=== PATIENT | female | born 1930 | race Caucasian/White ===

== ENCOUNTER → 2016-03-08 09:55 | Outpatient (CLI) | payer MEDICARE ==
[2013-12-03 15:07] VITALS: BMI 27.4
[~2016-03-08 09:55] MED LIST: BAYER CHEWABLE81 MG PO; BENADRYL25 MG PO; BENADRYL50 MG PO; BRILINTA90 MG PO; COLACE100 MG PO; CORDARONE200 MG PO; DIOVAN HCT 320/1 TAB PO; DULCOLAX10 MG/SUPP RC; FLORAJEN3 CAPS460 MG PO; GLUCOTROL XL 5 M5 MG PO; INCRUSE ELLI62.5 MCG INH; IPRAT-ALBUT 0.5-3 ML UPD; LIPITOR10 MG PO; MILK OF MAGNESI30 ML PO; MIRALAX17 GM PO; MUCINEX DM ER1 EAC1 PO; NAPROSYN500 MG PO; NUTRISOURCE FI1 EACH PO; OMNICEF300 MG PO; OXAZEPAM30 MG PO; PRILOSEC20 MG PO; QVAR8.7 G1 INH; REQUIP1 MG PO; SENOKOT-S TABLE1 TAB PO; SINGULAIR10 MG PO; SYMBICORT 16010.2 GM INH; TENORMIN50 MG PO; ULTRAM50 MG PO; VENTOLIN HFA18 GM INH; ZPAK PO; ZYRTEC10 MG PO
== END | disposition home or self-care (01) ==
LOC: D.CT 09:55 → D.RT 11:00
DX: J44.9 Chronic obstructive pulmonary disease, unspecified (principal)

== ENCOUNTER 2016-03-18 09:18 | Inpatient (IN) | payer MEDICARE ==
[2016-03-18] VITALS (13 sets, daily range): BP systolic 108–160; BP diastolic 50–67; BMI 32.0
[~2016-03-18] VITALS: Ht 167.6 cm; Wt 89.8 kg
[~2016-03-18 09:18] MED LIST changes: -COLACE100 MG PO; -CORDARONE200 MG PO; -DULCOLAX10 MG/SUPP RC; -FLORAJEN3 CAPS460 MG PO; -IPRAT-ALBUT 0.5-3 ML UPD; -MILK OF MAGNESI30 ML PO; -MUCINEX DM ER1 EAC1 PO; -OMNICEF300 MG PO; -SENOKOT-S TABLE1 TAB PO; -SINGULAIR10 MG PO; -ZPAK PO
[2016-03-18 11:00] LABS: HEMATOCRIT 43.4 % (36.0-48.0); HEMOGLOBIN 14.2 g/dL (12-16); MCH 30.7 pg (26.0-34.0); MCHC 32.7 g/dL (31.0-37.0); MCV 93.7 fL (80.0-100.0); MEAN PLATELET VOLUME 10.8 fL (7.4-10.4); PLATELET COUNT 346 10x3/uL (130-400); RBC 4.63 10x6/uL (4.00-5.40); RDW 14.8 % (11.5-14.5); WBC 24.3 10x3/uL (4.8-10.8)
[2016-03-18 11:15] LABS: ANION GAP 15.3 mmol/L (8-16); CALCIUM 9.6 mg/dL (8.5-10.1); CARBON DIOXIDE 26.1 mmol/L (21.0-32.0); CREATININE - SERUM 1.2 mg/dL (0.6-1.3); POTASSIUM - SERUM 4.4 mmol/L (3.5-5.1)
[2016-03-18] MEDS ORDERED: SINGULAIR10 MG PO (11:15)
[2016-03-18] MEDS ORDERED: MUCINEX DM ER1 EAC1 PO (11:15)
[2016-03-18] MEDS ORDERED: IPRAT-ALBUT 0.5-3 ML UPD (11:40)
--- NOTE | 2016-03-18 12:27 | NUR ---
1225 DR SAENZ NOTIFIED OF WBC COUNT 24.3 AND PT'S CONCERN OF NEW ONSET BACK PAIN AND NO BM SINCE TUESDAY. NO NEW ORDERS RECEIVED.
[2016-03-18 13:14] LABS: EOSINOPHILS 2 % (0-7); LYMPHOCYTES 13 % (15-50); MONOCYTES 7 % (2-11); NEUTROPHILS 73 % (40-80); PLATELET ESTIMATE NORMAL
--- NOTE | 2016-03-18 15:00 | NUR ---
PATIENT BILATERAL KNEES NOTED TO BE RED LEFT KNEE WORSE THAN RIGHT, THIS WAS NOTICED WHEN PLACING STUART, ALSO WHEN PLACING STUART PATIENT HAS VERY SMALL OPENING TO GET TO MEATUS NOTED MINIMAL AMOUNT OF BLEEDING AFTER PUTTING STUART IN, THIS WAS NOTIFIED TO MARTINE MURRIETA.
--- NOTE | 2016-03-18 17:10 | NUR ---
RECIEVED PATIENT VIA BED WITH NURSE FROM RECOVERY ROOM. PATIENT IS AWAKE, ALERT AND ORIENTED X'S 4. RECIEVING 2L/MIN OF OXGYEN VIA NASAL CANNULA. AUDIBLE CRACKLES NOTED. ASSESSED ABDOMEN, ABDOMINAL BINDER IN PLACE. OPEN ABDOMINAL BINDER TO ASSESS ABDOMEN. MIDLINE INCISION WITH BORDERED GAUZE DRESSING INTACT. SMALL AMOUNT OF BLOOD ON DRESSING. BOWEL SOUNDS HYPOACTIVE X'S 4 QUADS PER AUSCULTATION. PUT ABDOMINAL BINDER BACK ON. SCDS TO BILATERAL LEGS.
[2016-03-19] VITALS (7 sets, daily range): BP systolic 109–184; BP diastolic 52–81; Ht 167.6 cm; Wt 89.8 kg
--- NOTE | 2016-03-19 04:30 | NUR ---
PT STILL UNABLE TO VOID AFTER SURGERY. MANY ATTEMPTS WITH NO SUCCESS. BLADDER SCANNED 400. PERFORMED IN/OUT CATH AND RECEIVED 450 CC'S CLEAR YELLOW URINE. NO OTHER NEEDS. WILL CONTINUE TO MONITOR.
[2016-03-19 06:54] LABS: BASOPHILS 0.1 % (0.0-2.0); EOSINOPHILS 0 % (0-7); HEMATOCRIT 39.9 % (36.0-48.0); HEMOGLOBIN 12.7 g/dL (12-16); IMMATURE GRANULOCYTES 0.6 % (0-5); LYMPHOCYTES 5.6 % (15-50); MCH 29.9 pg (26.0-34.0); MCHC 31.8 g/dL (31.0-37.0); MCV 93.9 fL (80.0-100.0); MEAN PLATELET VOLUME 10.4 fL (7.4-10.4); MONOCYTES 8.5 % (2-11); NEUTROPHILS 85.2 % (40-80); PLATELET COUNT 335 10x3/uL (130-400); RBC 4.25 10x6/uL (4.00-5.40); RDW 14.8 % (11.5-14.5); WBC 24.1 10x3/uL (4.8-10.8)
[2016-03-19 07:10] LABS: ANION GAP 16.7 mmol/L (8-16); CALCIUM 8.4 mg/dL (8.5-10.1); CARBON DIOXIDE 21.9 mmol/L (21.0-32.0); CREATININE - SERUM 1.1 mg/dL (0.6-1.3); POTASSIUM - SERUM 4.6 mmol/L (3.5-5.1)
--- NOTE | 2016-03-19 08:19 | NUR ---
PATIENT ALERT/ORIENT. SITTING UP IN BED TO EAT BREAKFAST. CALL LIGHT WITHIN REACH. DAUGHTER IN ROOM WITH PATIENT. OXYGEN ON AT 2L PER N/C
--- NOTE | 2016-03-19 10:00 | NUR ---
PHYSICAL THERAPIST IN ROOM WITH PATIENT. HELPED PATIENT UP TO CHAIR AT BEDSIDE.
--- NOTE | 2016-03-19 13:10 | NUR ---
PATIENT STATES SHE HAS NOT GONE (URINATED) THIS AM. HELPED UP TO THE BEDSIDE COMMODE. MAX ASST OF TWO FROM BED TO COMMODE TRANSFER.
--- NOTE | 2016-03-19 13:30 | NUR ---
PATIENT DID NOT URINATE WHILE ON THE COMMODE. HELPED BACK TO BED. DR TORRES NOTIFIED OF PATIENT NOT BEING ABLE TO URINATE. LUNG SOUND, CRACKES-RALES. NEW ORDERS RECEIVED
--- NOTE | 2016-03-19 13:45 | NUR ---
PATIENT STRAIGHT CATH. HAS A PROLAPES BLADDER. 800CC OF URINE OUTPUT
--- NOTE | 2016-03-19 18:12 | NUR ---
PATIENT HELPED UP TO THE COMMODE BY TWO ASST. UNABLE TO VOID
[2016-03-20 04:20] VITALS: BP 156/54
--- NOTE | 2016-03-20 08:21 | NUR ---
AWAKE AND ALERT. ORIENTED X3. NO C/O AT THIS TIME. LUNGS WITH FAINT CRACKLES AND DIMINISHED THROUGHOUT. OCCASSIONALLY PRODUCTIVE COUGH NOTED. SKIN IS INTACT WITHOUT REDNESS EXCEPT INCISION TO LEFT LOWER ABDOMEN WHICH HAS A DRY INTACT DRESSING IN PLACE. IV TO RIGHT FOREARM IS PATENT WITHOUT REDNESS AT INSERTION SITE. DAUGHTER AT BEDSIDE REPORTS UP TO BSC WITH ASSIST. BREAKFAST SERVED IN ROOM. DAUGHTER IS ASSISTING WITH MEAL.
[2016-03-20 10:06] VITALS: BP 128/80
--- NOTE | 2016-03-20 10:30 | NUR ---
TOOK AM MEDS WITHOUT DIFFICULTY. AMBULATED IN HALLWAY WITH PT USING RW.
--- NOTE | 2016-03-20 11:50 | NUR ---
REQUESTED AND GIVEN 4MG ZOFRAN SLOW IVP FOR C/O NAUSEA. WILL MONITOR.
--- NOTE | 2016-03-20 12:30 | NUR ---
LUNCH SERVED IN ROOM. DAUGHTER ASSISTED WITH MEAL. ATE ONLY A FEW BITES AND BEGAN GAGGING. WILL MONITOR.
[2016-03-20 13:01] VITALS: BP 185/64
--- NOTE | 2016-03-20 15:30 | NUR ---
RESTING QUIETLY WITH EYES CLOSED. NO NEEDS NOTED.
--- NOTE | 2016-03-20 18:25 | NUR ---
ATE A FEW BITES OF SUPPER. NO CHANGES NOTED. DENIES NEEDS. FAMILY AT BEDSIDE.
[2016-03-20 18:48] VITALS: BP 190/68
[2016-03-20 20:28] VITALS: BP 137/67
--- NOTE | 2016-03-20 23:26 | NUR ---
REC'D IN BED WITH EYES CLOSED EASILY AROUSED WHEN NAME IS CALLED. RESP EVEN AND UNLABORED WITH NO DISTRESS NOTED. CAN VOICE NEEDS AND WANTS. NO C/O NOTED OR VOICED.ASSESSEMENT COMPLETED. DAUGHTER AT BEDSIDE. C/L IN REACH
[2016-03-21] VITALS (7 sets, daily range): BP systolic 104–183; BP diastolic 57–90
--- NOTE | 2016-03-21 02:12 | NUR ---
RESTING WITH EYES CLOSED, RESP WITH EASE, ABD BINDER IN PLACE, SR'S UP, CL IN REACH
--- NOTE | 2016-03-21 04:32 | NUR ---
REC'D IN BED AWAKE AND ALERT. RESP EVEN AND UNLABORED WITH NO DISTRESS NOTED. CAN VOICE NEEDS AND WANTS. ASSISTANCE GIVEN WITH TRANSFERS. DAUGHTER AT BEDSIDE. NO C/O NOTED OR VOICED AT THIS TIME. ASSESSMENT COMPLETED. C/L IN REACH AT BEDSIDE.
--- NOTE | 2016-03-21 07:57 | NUR ---
AWAKE AND ALERT. ORIENTED X3. NO C/O AT THIS TIME. LUNGS HAVE CRACKLES AND DIMINISHED THROUGHOUT LUNG RODGERS. NON PRODUCTIVE COUGH NOTED. SKIN IS INTACT WITHOUT REDNESS EXCEPT INCISION TO LEFT LOWER ABDOMEN WHICH IS DRY AND INTACT WITH CLIPS IN PLACE. SCD'S IN PLACE. DENIES NEEDS. HEART RATE IS ELEVATED AND SPORADIC AT THIS TIME. WILL GET EKG A PRECAUTION. FAMILY AT BEDSIDE.
--- NOTE | 2016-03-21 08:30 | NUR ---
EKG SHOWED AFIB. DR. SAENZ NOTIFIED OF SAME. NEW ORDERS TO CONSULT DR. JEONG'S GROUP. SPOKE WITH DR. ROLDAN.
[2016-03-21 10:11] LABS: CALC OSMOLALITY 270 mosm/kg (275-300); CALCIUM 9.8 mg/dL (8.5-10.1); CARBON DIOXIDE 26.4 mmol/L (21.0-32.0); CHLORIDE - SERUM 95 mmol/L (98-107); CKMB 2.6 U/L (0.0-3.6); CREATINE KINASE 140 UL (21-215); CREATININE - SERUM 0.9 mg/dL (0.6-1.3); GLUCOSE 192 mg/dL (74-106); MAGNESIUM - SERUM 1.7 mg/dL (1.8-2.4); PHOSPHOROUS 2.6 mg/dL (2.5-4.9); POTASSIUM - SERUM 3.6 mmol/L (3.5-5.1); SODIUM 132 mmol/L (136-145); TROPONIN-I < 0.017 ng/mL (0.000-0.060); UREA NITROGEN 14 mg/dL (7-18); eGFR NON AFRICAN AMERICAN 63 mL/min (90-120)
[2016-03-21 10:18] LABS: BASOPHILS 0.1 % (0.0-2.0); EOSINOPHILS 0.3 % (0-7); HEMATOCRIT 39.5 % (36.0-48.0); HEMOGLOBIN 12.9 g/dL (12-16); IMMATURE GRANULOCYTES 0.5 % (0-5); LYMPHOCYTES 7.4 % (15-50); MCH 30.4 pg (26.0-34.0); MCHC 32.7 g/dL (31.0-37.0); MCV 92.9 fL (80.0-100.0); MEAN PLATELET VOLUME 10.6 fL (7.4-10.4); NEUTROPHILS 80.7 % (40-80); PLATELET COUNT 378 10x3/uL (130-400); RBC 4.25 10x6/uL (4.00-5.40); RDW 14.5 % (11.5-14.5)
--- NOTE | 2016-03-21 10:30 | NUR ---
UP TO BSC. VOIDED WITHOUT DIFFICULTY. NO BM OF NOW. WILL MONITOR. TELEMETRY IN PLACE SHOWS AFIB. WILL CONTINUE TO MONITOR.
--- NOTE | 2016-03-21 12:29 | NUR ---
C/O FEELING NAUSEATED. REQUESTED AND GIVEN 4MG ZOFRAN SLOW IVP FOR SAME. WILL MONITOR.
--- NOTE | 2016-03-21 12:30 | NUR ---
REFUSED TO EAT BUT A FEW BITES OF LUNCH. FAMILY AT BEDSIDE. REFUSED PT THIS AM.
--- NOTE | 2016-03-21 13:00 | NUR ---
DR. AYALA HERE. NEW ORDERS RECEIVED.
--- NOTE | 2016-03-21 19:23 | NUR ---
REFUSED TO EAT ANY SUPPER. NO CHANGES NOTED. DENIES NEEDS.
--- NOTE | 2016-03-22 04:00 | NUR ---
PT IN BED WITH NO NEEDS. IV TO RIGHT FOREARM PATENT AND SALINE LOC. TELEMETRY ON. SCD'S ON. MIDLINE INCISION NOTED EARLIER IN SHIFT TO BE OOZING ABOVE 4TH STAPLE. ABDOMINAL BINDER ON. HYPOACTIVE BOWEL SOUNDS NOTED. SIDE RAILS ARE UP X 2. BED IS LOW. CALL LIGHT IS IN REACH.
--- NOTE | 2016-03-22 04:31 | NUR ---
CONTINUE TO REST WELL AT THIS TIME WITH NO C/O NOTED OR VOICED. C/L IN REACH AT BEDSIDE.
[2016-03-22 05:54] VITALS: BP 179/73
--- NOTE | 2016-03-22 08:30 | NUR ---
PATIENT SITTING UP IN HER BED, SEMI HI FOWLERS. SHE IS WITHOUT EVIDENCE OF DISTRESS. DAUGHTER AT THE BEDISDE. STAT ESHTAT SHE HAS A FEELING LIKE HER FOOD "HITS A BRICK WALL" ABOUT HER CHEST AND SHE CANNOT EAT ANY MORE. ENCOURAGED LIQUIDS AND ASKED IF THERE WAS SOMETHING SOFT SHE WOULD LIKE TO EAT. ORDERED EGG FROM KITCHEN.
--- NOTE | 2016-03-22 11:45 | NUR ---
DR. SAENZ IN TO VISIT PATIENT. INFORMED OF FEELING OF FOOD BECOMING STUCK. HE ENCOURAGED FLUIDS WELL. BOWEL SOUNDS ARE ACTIVE AND -PATIENT IS PASSING GAS. SHE HAD A LARGE BM LAST NIGHT. THE INCISION IS DRAINING SEROUS SANGUONEOUS FLUID, HE ASSESSED AND GAVE ORDERS FOR CARE. DAUGHTER VOICED UNDERSTANDING.
[2016-03-22] MEDS ORDERED: CORDARONE200 MG PO (12:27)
[2016-03-22] MEDS ORDERED: ULTRAM50 MG PO (12:30)
--- NOTE | 2016-03-22 12:56 | NUR ---
Patient Name: JIA MENDOZA Admission Status: Elective Accout number: [id number] Admission Date: 03-20-2016 : 1930 Admission Diagnosis: Attending: PIOTR Current LOS: 2 Anticipated DC Date: Planned Disposition: Primary Insurance: MEDICARE A & B Discharge Planning Comments: CM MET WITH PATIENT AND DAUGHTER (АННА) REGARDING D/C NEEDS AND PLANS. DAUGHTER WILL DRIVE PATIENT HOME AT DISCHARGE (TODAY). PATIENT HAS A RAMP TO ENTER HOME AND NO STAIRS INSIDE. PATIENT HAS A WALKER, SHOWER CHAIR, BS COMMODE, AND DAUGHTER STATED THEY ARE BUYING A NEW GLUCOMETER. PATIENTS DAUGHTER IS IN CHARGE OF PATIENTS MEDICATION MANAGEMENT. PATIENTS PCP DR. MCGUIRE IN [place] AND USES [facility] IN [place]. PATIENT HAS CHOSE VISITING [facility]URSES [facility] AND SIGNED THE [facility] FORM. CM WILL CONTINUE TO FOLLOW PATIENT WITH D/C NEEDS AND PLANS. PCP DR. MCGUIRE ([place]) [facility] IN [phone] АННА (DAUGHTER) [phone] Ad Taker: Jo Guerra Is the patient Alert and Oriented? Yes 0 * How many steps to enter\exit or inside your home? RAMP 0 * PCP DR. MCGUIRE 0 * Pharmacy [facility] 0 * Preadmission Environment Home with Family 0 * ADLs Partial Dependent 0 * Partial ADLs (Assistance needed) Ambulation Bathing Dressing Medication Management Toileting Transfers 0 * Equipment Bedside Commode Shower Chair Walker 0 * List name and contact numbers for known caregivers / representatives who currently or will assist patient after discharge: АННА GAMBLE (YES TYE IS LAST NAME) [phone] 0 * Community resources currently utilized None 0 * Additional services required to return to the preadmission environment? Yes 0 * Can the patient safely return to the preadmission environment? Yes 0 * Has this patient been hospitalized within the prior 30 days at any hospital? No 0 Grand Total: 0
[2016-03-22 12:57] VITALS: BP 193/74
[2016-03-22 16:10] VITALS: BP 152/69
--- NOTE | 2016-03-22 16:24 | NUR ---
REVIEWED DISCHARGE INSTRUCTIONS WITH JACK AND HER 2 DAUGHTERS. APPLIED TRIPPLE ANTIBIOTIC OINTMENT TO THE LOWER 1/3 OF HER INCISION AND COVERED WITH 4X4'S. REAPPLIED ABDOMINAL BINDER. THERE IS STILL SOME SEROUS SANGUONEOUS DRAINAGE. DISCUSSED CONSTIPATION, S/S OF INFECTIONS AND ACTIVITY LIMITATIONS. SHE AND DAUGHTER VOICED UNDERSTANDING AND DENIED QUESTIONS.
--- NOTE | 2016-03-22 16:53 | NUR ---
PATIENT DISCHARGED HOME WITH DAUGHTERS VIA WHEELCHAIR TO WAITING CAR.
--- NOTE | 2016-03-23 13:46 | OP ---
PATIENT NAME: JIA MENDOZA MEDICAL RECORD: [id number] :29 LOCATION:D.MS [facility]2204 ADMISSION DATE:03/20/16 SURGEON: ALAN SAENZ MD DATE OF OPERATION: 03/18/2016 PREOPERATIVE DIAGNOSES: 1. Ventral incisional hernia. 2. Coronary artery disease. 3. Chronic obstructive pulmonary disease. 4. Hypertension. 5. Diabetes mellitus. 6. Hypercholesterolemia. 7. Arthritis. POSTOPERATIVE DIAGNOSES: 1. Ventral incisional hernia. 2. Coronary artery disease. 3. Chronic obstructive pulmonary disease. 4. Hypertension. 5. Diabetes mellitus. 6. Hypercholesterolemia. 7. Arthritis. PROCEDURE: Open ventral hernia repair with 20 x 25 cm open Physiomesh. SURGEON: Alan Saenz MD REPORT OF PROCEDURE: The patient's abdomen was prepped and draped in sterile fashion. A right lower quadrant longitudinal incision was made overlying the hernia. There was an incision already in place. We followed this incision line down through the hernia sac and into the abdominal cavity. We were able to find the edges of the fascia and released any of the adhesions that were present on the posterior aspect of the abdominal wall. The fascial edges were freed up and we elevated the fatty tissue off of the fascia in all directions. At this point, we could measure out the hernia defect at 18 cm. A 20 x 25 cm open Physiomesh was inserted and sutured down on all sides using interrupted 0 Prolenes times 8. The mesh appeared to lie in good position. We then tacked it to the abdominal wall using an open Endo Tacker device. The fascia was then closed longitudinally using running #1 Prolene. There was good approximation of the tissue with no tension. We then inspected the subcutaneous space and made sure there was no sign of any active bleeding. The subcutaneous tissues were then reapproximated with interrupted 3-0 Vicryl. The patient had a lot of excess skin and this was removed. The subcutaneous tissues were then reapproximated further and the skin was closed with juan. COMPLICATIONS: None. CONDITION: Stable. ANESTHESIA: General endotracheal. BLOOD LOSS: 50 mL. TRANSINT:[id number] Voice Confirmation ID: [id number] DOCUMENT ID: [id number] CC: Ramin Yin OPERATIVE REPORT [id number] REJIJIA QUIROGAALAN CATES MD at 1346 CC: RENU HARRINGTON MD and MADELEINE JEONG MD [id number] DICTATION DATE: 03/18/16 1628 ADHESIVE SPRAYER: 03/18/16 1714 DIS IN 03/22/16 [facility] [address] [place] [address]
--- NOTE | 2016-03-24 14:16 | CN ---
PATIENT NAME:JIA MENDOZA MEDICAL RECORD: [id number] : 29 LOCATION:D.[facility]2204 ADMIT DATE: 03/20/16 ACCOUNT: [id number] CONSULTING PHYSICIAN: EL AYALA MD REFERRING PHYSICIAN: DWAYNE SAENZ MD DATE OF CONSULTATION: 03/21/2016 Cardiology Consultation HISTORY OF PRESENT ILLNESS: An 85-year-old lady status post recent ventral hernia repair. She has a history of atrial fibrillation as well as coronary artery disease. She went into atrial fibrillation, rate is about 120. This happens occasionally at home as well, typically controlled on beta blockers, suspect increased catecholamine drive. We were asked to see her concerning her cardiovascular status. PAST MEDICAL HISTORY: Includes: 1. History of coronary artery disease, status post stent to right. 2. Hypertension. 3. Hyperlipidemia. 4. Atrial fibrillation. ALLERGIES: PENICILLIN, MORPHINE AND CODEINE. MEDICATIONS: Typically include Zyrtec 10 mg p.o. every day, Diovan HCT 320/12.5 every day, atorvastatin 10 every day, atenolol 50 every day, tramadol 50 q.6 hours p.r.n., aspirin 81 every day, Naprosyn 500 mg every day, and omeprazole 20 every day. SOCIAL HISTORY: She is a nonsmoker and nondrinker. She takes care of her ADLs, excellent social and family support. REVIEW OF SYSTEMS: The patient reports easy bruising but reports no swollen glands. The patient reports no fever, no night sweats, no significant weight gain, no significant weight loss. No significant exercise tolerance. The patient reports no dry eyes, no irritation, no vision change. Patient reports no difficulty hearing and no ear pain. Patient reports no frequent nose bleeds or nose and sinus problems. Patient reports on arm pain on exertion. No shortness of breath while lying down. No history of heart murmur. Patient reports no cough, no wheezing or coughing up blood. Patient reports no abdominal pain, no vomiting. Normal appetite. No diarrhea and not vomiting blood. No nausea and no constipation. Patient reports no incontinence. No difficulty urinating. No hematuria. No increased frequency. Patient reports no muscle aches. No weakness, no arthralgias, no back pain. No swelling of the extremities. Patient reports no abnormal mole, no jaundice, no rashes. Reports no loss of consciousness. No weakness and no numbness. No seizures, dizziness, or headaches. The patient reports no depression, no sleep disturbance, feeling safe in a relationship and no alcohol abuse. Patient reports on fatigue. Reports no runny nose or sinus pressure. No itching, no hives, and no frequent sneezing. PHYSICAL EXAMINATION: GENERAL: Pleasant female in no acute distress. VITAL SIGNS: Blood pressure 183/88, pulse 138.. HEENT: Normocephalic and atraumatic. CONSULT REPORT [id number] JIA MENDOZA NECK: No JVD or bruit. HEART: Irregular, rate is approximately 120. LUNGS: Good air excursion. ABDOMEN: Very quiet bowels. EXTREMITIES: Pulses 2+. There is no edema. NEUROLOGIC: Grossly intact. IMPRESSION: Atrial fibrillation secondary to increased catecholamine drive postoperatively. We will plan to place on Cordarone. Probably treat this same as postop CABG atrial fibrillation with 6-8 weeks of Cordarone therapy. Thank you for the consultation. TRANSINT:[id number] Voice Confirmation ID: [id number] DOCUMENT ID: [id number] EL AYALA MD at 1416 CC: [id number] DICTATION DATE: 03/21/16 1218 TRAILER BODY ASSEMBLER: 03/21/16 1555 DIS IN 03/22/16 [facility] [id number] [place] [address]
== END 2016-03-22 16:54 | disposition home or self-care (01) | DRG 355 ==
LOC: D.MS 09:18 → D.OPS 09:18 → D.PAN 11:45 → D.OPS 11:50 → D.PAN 11:50 → D.OPS 12:45 → D.MS 16:16 → D.OPS 03-20 19:25 → D.MS 03-20 19:26
PROVIDERS: ADMIT Surgery
PROC: 0WUF0JZ Supplement Abdominal Wall with Synthetic Substitute, Open Approach (ICD-10-PCS; principal; 2016-03-18 11:45)
DX: K43.2 Incisional hernia without obstruction or gangrene (principal); I48.91 Unspecified atrial fibrillation; I10 Essential (primary) hypertension; E78.00 Pure hypercholesterolemia, unspecified; I25.10 Atherosclerotic heart disease of native coronary artery without angina pectoris; J44.9 Chronic obstructive pulmonary disease, unspecified; E11.9 Type 2 diabetes mellitus without complications; M19.90 Unspecified osteoarthritis, unspecified site

== ENCOUNTER 2016-03-23 04:04 | Inpatient (IN) | payer MEDICARE ==
[~2016-03-23] VITALS: Ht 167.6 cm; Wt 89.4 kg
[2016-03-23] VITALS (10 sets, daily range): BP systolic 121–175; BP diastolic 57–79; Ht 167.6 cm; Wt 89.4 kg
[~2016-03-23 04:04] MED LIST changes: +CORDARONE200 MG PO; +IPRAT-ALBUT 0.5-3 ML UPD; +MUCINEX DM ER1 EAC1 PO; +SINGULAIR10 MG PO
[2016-03-23 04:41] LABS: HEMATOCRIT 39.1 % (36.0-48.0); HEMOGLOBIN 12.5 g/dL (12-16); MCV 93.8 fL (80.0-100.0); MEAN PLATELET VOLUME 9.8 fL (7.4-10.4); PLATELET COUNT 398 10x3/uL (130-400); RBC 4.17 10x6/uL (4.00-5.40); RDW 14.3 % (11.5-14.5)
[2016-03-23 04:42] LABS: APTT 23.5 SECONDS (22.8-39.4); INR 1.09 (0.85-1.17)
[2016-03-23 04:46] LABS: ALBUMIN 2.4 g/dL (3.4-5.0); ANION GAP 12.3 mmol/L (8-16); BILIRUBIN - TOTAL 0.42 mg/dL (0.2-1.3); CALCIUM 9.7 mg/dL (8.5-10.1); CARBON DIOXIDE 29.2 mmol/L (21.0-32.0); CREATININE - SERUM 0.9 mg/dL (0.6-1.3); PROTEIN - SERUM 7.1 g/dL (6.4-8.2)
[2016-03-23 04:47] LABS: POTASSIUM - SERUM 4.5 mmol/L (3.5-5.1)
[2016-03-23 05:00] LABS: EOSINOPHILS 2 % (0-7); LYMPHOCYTES 13 % (15-50); MONOCYTES 4 % (2-11); NEUTROPHILS 81 % (40-80); PLATELET ESTIMATE NORMAL; PLATELET MORPHOLOGY GIANT PLTS PRESENT
--- NOTE | 2016-03-23 08:13 | NUR ---
PT SEEN AND ASSESSED. FORMS COMPLETED FOR SURGERY-PT REMAINS NPO. LEFT LOWER LEG AND FOOT WRAPPED IN GERMAN WRAP AND SPLINT-ELEVATED ON PILLOW. BED ALARM ON FOR SAFETY. CALL LIGHT IN REACH. FAMILY AT BEDSIDE.
--- NOTE | 2016-03-23 09:46 | NUR ---
TO SURG PER BED
--- NOTE | 2016-03-23 13:07 | NUR ---
PT BACK FROM SURG. INCISION NOTED WITH CLIPS FROM PREVIOUS SURG CLEAN DRY AND INTACT. GERMAN WRAP WITH HARD SPLINT NOTED TO LEFT ANKLE. CALL LIGHT IN REACH.
--- NOTE | 2016-03-23 20:00 | NUR ---
ASSESSMENT PER FLOWSHEET. SR UP X2 BED ALARM BED NITRO MAN LIGHT WITHIN REACH DAUGHTER AT BEDSIDE. IV PATENT LEFT ARM OF NS AT 75CC'S/HR. TELM SHOWS SB AT 59.CAST TO LEFT FOOT ELEVATED ON PILLOW. ICE BAG REFILLED AND PLACED TO ANKLE SITE.
--- NOTE | 2016-03-23 22:00 | NUR ---
MEDS GIVEN PER MAR.
--- NOTE | 2016-03-24 | NUR ---
EYES CLOSED RESPIRATIONS WITH EASE AND UNLABORED.
--- NOTE | 2016-03-24 04:00 | NUR ---
DAUGHTER CALLS NURSE INTO ROOM. PT HAVING SMALL NOSE BLEED. HELD PRESSURE TO BRIDGE OF NOSE BLEEDING STOPPED.O2 ON 2L/M PER NC WITH HUMIDIFIED O2.
[2016-03-24 05:00] VITALS: BP 137/60
--- NOTE | 2016-03-24 05:30 | NUR ---
INSTRUCTED PT TO USE INCENTIVE SPIROMETER AND SHOWED PATIENT HOW TO USE.
--- NOTE | 2016-03-24 06:30 | NUR ---
NO CHANGES IN ASSESSMENT.
[2016-03-24 08:14] VITALS: BP 153/52
--- NOTE | 2016-03-24 10:08 | NUR ---
PT SEEN AND ASSESSED. LEFT ANKLE WRAPPED IN GERMAN WRAP AND HARD SPLINT AND ELEVATED ON PILLOW. TOES WARM AND PINK-ABLE TO MOVE THEM FREELY. NO COMPLAINTS AT PRESENT. SCD X 1 TO RIGHT LEG. BED ALARM FOR SAFETY. FAMILY AT BEDSIDE. CALL LIGHT IN REACH
--- NOTE | 2016-03-24 10:57 | NUR ---
WOUND CARE CONSULT: PATIENT IS S/P ORIF LEFT ANKLE BY DR. JACOME ON 03/23/16. CAST NOTED ON LEFT ANKLE. TOES PINK. ABLE TO WIGGLE TOES. ELEVATED ON PILLOW. NO C/O DISCOMFORT AT THIS TIME. WILL MONITOR NEEDED.
--- NOTE | 2016-03-24 11:11 | NUR ---
Patient Name: JIA MENDOZA Admission Status: ER Accout number: [id number] Admission Date: 03-23-2016 : 1930 Admission Diagnosis:DISPLACED TRIMALLEOLAR FRACTURE OF LEFT LOWER LEG, INIT Attending: LYDIA Current LOS: 1 Anticipated DC Date: 03-25-2016 Planned Disposition: Inpatient Rehab Primary Insurance: MEDICARE A & B Discharge Planning Comments: CM MET WITH PATIENTS DAUGHTER (АННА) REGARDING D/C NEEDS AND PLANS. PATIENT WAS IN CHAIR RESTING AT THAT TIME. DAUGHTER STATED THEY HAVE A RAMP AT HOME AND NO STAIRS INSIDE. PATIENT HAS A WALKER, AND SHOWER CHAIR AT HOME. PATIENTS PCP IS DR. MCGUIRE IN [place] [facility]. PATIENTS DAUGHTER STATED SHE COULD NOT TAKE CARE OF HER AT THIS TIME AND WOULD NEED IP REHAB AT [place] IF POSSIBLE. REFERRAL WAS SENT. CM ALSO CONTACTED VISITING NURSE [facility] REGARDING PATIENT COMING BACK TO HOSPITAL-THEY WERE GOING TO ADMIT HER AND PATIENT HAD TO COME BACK TO HOSPITAL BEFORE ADMISSION. CM WILL CONTINUE TO FOLLOW PATIENT WITH D/C NEEDS AND PLANS. PCP DR. MCGUIRE [facility]- [phone] АННА GAMBLE - DAUGHTER- [phone] Attraction Worker: Jo Guerra Is the patient Alert and Oriented? Yes 0 * How many steps to enter\exit or inside your home? RAMP 0 * PCP DR. MCGUIRE 0 * Pharmacy [facility] IN [place] 0 * Preadmission Environment Home with Family 0 * ADLs Partial Dependent 0 * Partial ADLs (Assistance needed) Ambulation Bathing Dressing Medication Management Toileting Transfers 0 * Equipment Shower Chair Walker 0 * Community resources currently utilized None 0 * Additional services required to return to the preadmission environment? Yes 0 * Can the patient safely return to the preadmission environment? No 0 * Has this patient been hospitalized within the prior 30 days at any hospital? Yes
[2016-03-24 11:45] VITALS: BP 164/101
[2016-03-24 15:30] LABS: BASOPHILS 0.3 % (0.0-2.0); EOSINOPHILS 0.8 % (0-7); HEMATOCRIT 35.6 % (36.0-48.0); HEMOGLOBIN 11.3 g/dL (12-16); IMMATURE GRANULOCYTES 2.6 % (0-5); LYMPHOCYTES 12.1 % (15-50); MCH 29.7 pg (26.0-34.0); MCHC 31.7 g/dL (31.0-37.0); MCV 93.7 fL (80.0-100.0); MEAN PLATELET VOLUME 9.6 fL (7.4-10.4); MONOCYTES 11.1 % (2-11); NEUTROPHILS 73.1 % (40-80); PLATELET COUNT 394 10x3/uL (130-400); RDW 14.2 % (11.5-14.5); WBC 20.9 10x3/uL (4.8-10.8)
[2016-03-24 15:58] LABS: APPEARANCE CLEAR (CLEAR); COLOR YELLOW (YELLOW); LEUKOCYTE ESTERASE 2+ (NEGATIVE); NITRITE NEGATIVE (NEGATIVE)
[2016-03-24 15:59] LABS: BILIRUBIN NEGATIVE (NEGATIVE); GLUCOSE NEGATIVE (NEGATIVE); KETONE SMALL mg/dL (NEGATIVE); PROTEIN TRACE mg/dL (NEGATIVE); UROBILINOGEN NORMAL (NORMAL)
[2016-03-24 16:06] LABS: EPITHELIAL CELLS 0-5 /hpf (0-5); RED CELLS - URINE OCC /hpf (0-5); WHITE CELLS - URINE 25-50 /hpf (0-5)
[2016-03-24 16:08] LABS: BACTERIA MODERATE /hpf (NONE SEEN)
[2016-03-24 16:23] VITALS: BP 169/76
--- NOTE | 2016-03-24 18:34 | NUR ---
PT HAS NO COMPLAINTS AT PRESENT. BED ALARM ON FOR SAFETY. TO MRI PER CART
--- NOTE | 2016-03-24 19:35 | NUR ---
RECIEVED SHIFT REPORT. PT IS LYING IN BED. ALERT AND ORIENTED AND ABLE TO VERBALIZE NEEDS. IV IS PATENT AND FLUIDS ARE RUNNING PER ORDER. O2 @ 2 PER NASAL CANNULA. STUART IS DRAINING URINE BY GRAVITY. SCD TO RIGHT LEG. PT REQUIERS ASSISTANCE TURNING IN BED FOR SKIN CARE AND COMFORT. DRESSING TO LEFT ANKLE C/D/I. PT STATES PAIN IS 9/10. NO NEEDS ARE VERBALIZED AT THIS TIME. WILL CONTINUE TO MONITOR. SIDE RAILS ARE UP X 2. BED IS IN LOWEST POSITION. BED ALARM IS ON FOR SAFETY. CALL LIGHT IS WITHIN REACH.
[2016-03-24 20:00] VITALS: BP 158/62
--- NOTE | 2016-03-24 21:35 | NUR ---
SHIFT ASSESSMENT COMPLETED. NIGHT MEDS GIVEN WITH NO PROBLEMS. PT RECIEVED NO INSULIN PER SLIDING SCALE FOR FSBS=84. NO NEEDS ARE VOICED. WILL MONITOR. SIDE RAILS X 2. BED LOW. BED ALARM ON. CALL LIGHT IN REACH.
[2016-03-25] VITALS: BP 162/65
[2016-03-25 05:22] LABS: BASOPHILS 0.2 % (0.0-2.0); EOSINOPHILS 0.9 % (0-7); HEMATOCRIT 33.2 % (36.0-48.0); HEMOGLOBIN 10.5 g/dL (12-16); IMMATURE GRANULOCYTES 2.9 % (0-5); LYMPHOCYTES 9.1 % (15-50); MCH 29.2 pg (26.0-34.0); MCHC 31.6 g/dL (31.0-37.0); MCV 92.5 fL (80.0-100.0); MEAN PLATELET VOLUME 9.5 fL (7.4-10.4); MONOCYTES 8.8 % (2-11); NEUTROPHILS 78.1 % (40-80); PLATELET COUNT 417 10x3/uL (130-400); RBC 3.59 10x6/uL (4.00-5.40); RDW 14.2 % (11.5-14.5)
[2016-03-25 05:47] LABS: ALKALINE PHOSPHATASE 69 U/L (46-116); ALT (SGPT) 25 U/L (10-68); BILIRUBIN - TOTAL 0.43 mg/dL (0.2-1.3); CALC OSMOLALITY 267 mosm/kg (275-300); CALCIUM 8.7 mg/dL (8.5-10.1); CARBON DIOXIDE 24.6 mmol/L (21.0-32.0); CHLORIDE - SERUM 98 mmol/L (98-107); CREATININE - SERUM 0.7 mg/dL (0.6-1.3); GLUCOSE 115 mg/dL (74-106); POTASSIUM - SERUM 3.4 mmol/L (3.5-5.1); SODIUM 134 mmol/L (136-145); UREA NITROGEN 9 mg/dL (7-18); eGFR NON AFRICAN AMERICAN 84 mL/min (90-120)
--- NOTE | 2016-03-25 07:00 | NUR ---
REPORT RECIEVED ASSUMED CARE. PATIENT IN BED WITH IV INTACT. NO COMPLAINTS AT HTIS TIME. CALL LIGHT WITHIN REACH.
[2016-03-25 08:20] VITALS: BP 182/54
--- NOTE | 2016-03-25 08:25 | OP ---
PATIENT NAME: JIA MEDNOZA MEDICAL RECORD: [id number] :29 LOCATION:D.MS M[facility]2215 ADMISSION DATE:03/23/16 SURGEON: RAJINDER BRYSON MD DATE OF OPERATION: 03/23/2016 PREOPERATIVE DIAGNOSIS: Trimalleolar ankle fracture. POSTOPERATIVE DIAGNOSIS: Trimalleolar ankle fracture. PROCEDURE PERFORMED: Left ankle open reduction and fixation using a Biomet fixation of the lateral side and 2 cannulated screws from the medial side. SURGEON: Quique Bryson MD ANESTHESIA: General. CONDITION: She tolerated the procedure well and was transferred to the recovery room in stable condition at termination of the procedure. INDICATIONS: This is an 85-year-old female that presented from [place]. She had fallen. She presents with a fracture, a trimalleolar fracture of her left ankle. She has recently had some cardiac services performed and it was felt that she needed to be transferred here for treatment. We discussed risks, benefits and alternatives of surgery including blood loss, scar, pain, failure of the bone to heal, further fractures, nonunion, malunion, and she understood and wished to proceed. OPERATIVE REPORT: The patient was taken to the operating room and placed in supine position. General anesthesia was obtained. She received 2 grams of Ancef intraoperatively. Her left leg was confirmed to be the correct leg. It was then prepped and draped in the normal fashion. I did make a small incision over the fracture site, reducing the fibula fracture. I then made a small incision distally at the tip of the lateral malleolus, following which, a pin was driven up the fibula, then over drained and then a small nail was placed, locking it into place with 2 Willacy FibuLock, the nail was placed locking it with 2 screws distally and then pulling the system proximally to lock it into the bone. I then placed two 4.0 x 45 mm screws medially through the stab incisions to try and make least incision I could as the skin seem to be very frail. I took AP, lateral and oblique views that showed the fracture was reduced. I therefore copiously irrigated, then closed with 2-0 Vicryl and Prolene, placed it in an AO type splint. She was awakened and transferred to the recovery room in stable condition, having tolerated the procedure well. TRANSINT:[id number] Voice Confirmation ID: [id number] DOCUMENT ID: [id number] RAJINDER BRYSON MD at 0825 CC: [id number] DICTATION DATE: 03/23/16 1159 COMBINER OPERATOR: 03/23/16 1216 ADM IN [facility] [address] [place] [address]
[2016-03-25 11:51] VITALS: BP 169/73
--- NOTE | 2016-03-25 12:00 | NUR ---
PATIENT SITTING UP IN CHAIR AT THIS TIME. FAMILY AT SIDE.
--- NOTE | 2016-03-25 12:24 | NUR ---
NUTRITION MONITORING & EVAL CHART REVIEWED, PT VISIT. NO INTAKE BREAKFAST. FAMILY AT BEDSIDE REPORTS PT WITH RECENT BM. RD FOLLOWING
--- NOTE | 2016-03-25 13:45 | NUR ---
PATIENT HAVING BMS. CLEANED UP AND TURNED. IV INTACT. CALL LIGHT WITHIN REACH.
[2016-03-25 16:26] VITALS: BP 170/72
--- NOTE | 2016-03-25 18:45 | NUR ---
PATIENT IV RED AND HURTING. REMOVED WITH CATH TIP INTACT. RESTARTED IN RIGHT RIGHT WRIST X 1 STICK AT THIS TIME. MEDS GIVEN. FAMILY AT BEDSIDE. CALL LIGHT WITHIN REACH.
--- NOTE | 2016-03-25 20:23 | NUR ---
PATIENT IN SEMI-FOWLERS POSITION. PATIENT STATED SHE DOES NOT NEED ANYTHING AT THIS TIME.
--- NOTE | 2016-03-26 02:45 | NUR ---
PATIENTS HEART RATE IN THE 150'S, PAGED CHAD. RESTARTED CORDARONE.
[2016-03-26 05:32] LABS: BASOPHILS 0.2 % (0.0-2.0); EOSINOPHILS 1.4 % (0-7); HEMATOCRIT 36.4 % (36.0-48.0); HEMOGLOBIN 11.7 g/dL (12-16); IMMATURE GRANULOCYTES 4.2 % (0-5); LYMPHOCYTES 13.1 % (15-50); MCH 29.9 pg (26.0-34.0); MCHC 32.1 g/dL (31.0-37.0); MCV 93.1 fL (80.0-100.0); MEAN PLATELET VOLUME 9.5 fL (7.4-10.4); NEUTROPHILS 72.1 % (40-80); PLATELET COUNT 472 10x3/uL (130-400); RBC 3.91 10x6/uL (4.00-5.40); RDW 14.4 % (11.5-14.5); WBC 16.2 10x3/uL (4.8-10.8)
[2016-03-26 05:51] LABS: ALBUMIN 2.1 g/dL (3.4-5.0); ALKALINE PHOSPHATASE 76 U/L (46-116); ALT (SGPT) 19 U/L (10-68); CALC OSMOLALITY 266 mosm/kg (275-300); CALCIUM 8.8 mg/dL (8.5-10.1); CARBON DIOXIDE 23.8 mmol/L (21.0-32.0); CHLORIDE - SERUM 96 mmol/L (98-107); CREATININE - SERUM 0.6 mg/dL (0.6-1.3); GLUCOSE 153 mg/dL (74-106); POTASSIUM - SERUM 3.6 mmol/L (3.5-5.1); PROTEIN - SERUM 6.2 g/dL (6.4-8.2); SODIUM 133 mmol/L (136-145); eGFR NON AFRICAN AMERICAN > 90 mL/min (90-120)
[2016-03-26 06:02] LABS: UREA NITROGEN 6 mg/dL (7-18)
--- NOTE | 2016-03-26 08:00 | NUR ---
PATIENT IN BED WITH IV INTACT. NO COMPLAINTS AT THIS TIME. FAMILY AT BEDSIDE. TELE ON. HR 140'S. PATIENT IN NO DISTRESS. CALL LIGHT WITHIN REACH. AWAITING PHYSICIAN AT THIS TIME. CHAD CAPPS APN NOTIFIED LAST NIGHT OF HR.
[2016-03-26 08:03] VITALS: BP 157/93
--- NOTE | 2016-03-26 08:38 | NUR ---
03/26/2016 8:30 DCP: Discharge Planning Patient Name: JIA MENDOZA Encounter No: [id number] : 1930 Primary Insurance: MEDICARE A & B Anticipated DC Date: 03-25-2016 Planned Disposition: Inpatient Rehab External Planned Provider: : [facility] follow-up note: CM SPOKE WITH "GAIL" AT [facility] ([phone]) WHO VERIFIES PATIENT HAS BEEN ACCEPTED TO FACILITY AT DISCHARGE. FACILITY DOES NOT PROVIDE TRANSPORTATION TODAY. PATIENT WILL NEED TO DISCHARGE VIA FAMILY MEMBER OR VIA AMBULANCE TO FACILITY. CM TO FOLLOW AND ASSIST NEEDED. Linda Carey RN/CM
--- NOTE | 2016-03-26 09:00 | NUR ---
MAGDA VILLAFANA AWARE OF PATIENT HR. ORDERS RECIEVED AND CARRIED OUT. CALL LIGHT WITHIN REACH.
[2016-03-26] MEDS ORDERED: DULCOLAX10 MG/SUPP RC (09:44)
[2016-03-26] MEDS ORDERED: COLACE100 MG PO (09:44)
[2016-03-26] MEDS ORDERED: MILK OF MAGNESI30 ML PO (09:44)
[2016-03-26] MEDS ORDERED: SENOKOT-S TABLE1 TAB PO (09:44)
[2016-03-26] MEDS ORDERED: MIRALAX17 GM PO (09:44)
[2016-03-26] MEDS ORDERED: FLORAJEN3 CAPS460 MG PO (09:44)
[2016-03-26] MEDS ORDERED: OMNICEF300 MG PO (09:44)
[2016-03-26] MEDS ORDERED: ZPAK PO (09:44)
[2016-03-26 12:33] VITALS: BP 148/82
[2016-03-26 15:55] VITALS: BP 157/86
--- NOTE | 2016-03-26 18:45 | NUR ---
PATIENT IN BED WITH NO COMPLAINTS. IV INTACT. DR. JEONG TO SEE PATIENT. FAMILY AT BEDSIDE. CALL LIGHT WITHIN REACH.
--- NOTE | 2016-03-26 19:30 | NUR ---
PATIENT RESTING IN SEMI-FOWLERS POSITION. BROUGHT PATIENT ICE WATER PER HER REQUEST. PATIENT'S BED IS IN LOWEST POSITION AND CALL LIGHT IS WITHIN REACH.
[2016-03-26 21:00] VITALS: BP 110/65
[2016-03-27 01:00] VITALS: BP 165/64
[2016-03-27 05:00] VITALS: BP 169/63
[2016-03-27 05:30] LABS: BASOPHILS 0.2 % (0.0-2.0); EOSINOPHILS 1.9 % (0-7); HEMATOCRIT 34.2 % (36.0-48.0); HEMOGLOBIN 10.6 g/dL (12-16); IMMATURE GRANULOCYTES 2.2 % (0-5); LYMPHOCYTES 9.2 % (15-50); MCH 29.4 pg (26.0-34.0); MCV 94.7 fL (80.0-100.0); MEAN PLATELET VOLUME 9.2 fL (7.4-10.4); MONOCYTES 7.7 % (2-11); NEUTROPHILS 78.8 % (40-80); PLATELET COUNT 477 10x3/uL (130-400); RBC 3.61 10x6/uL (4.00-5.40); RDW 14.4 % (11.5-14.5); WBC 17.9 10x3/uL (4.8-10.8)
[2016-03-27 05:45] LABS: ALKALINE PHOSPHATASE 69 U/L (46-116); ALT (SGPT) 23 U/L (10-68); BILIRUBIN - TOTAL 0.37 mg/dL (0.2-1.3); CALCIUM 8.6 mg/dL (8.5-10.1); CARBON DIOXIDE 28.7 mmol/L (21.0-32.0); CHLORIDE - SERUM 98 mmol/L (98-107); CREATININE - SERUM 0.7 mg/dL (0.6-1.3); GLUCOSE 110 mg/dL (74-106); PROTEIN - SERUM 5.8 g/dL (6.4-8.2); SODIUM 133 mmol/L (136-145); eGFR NON AFRICAN AMERICAN 84 mL/min (90-120)
[2016-03-27 06:01] LABS: CALC OSMOLALITY 265 mosm/kg (275-300); UREA NITROGEN 10 mg/dL (7-18)
--- NOTE | 2016-03-27 07:00 | NUR ---
REPORT RECIEVED ASSUMED CARE. PATIENT IN BED WITH IV INTACT. NO COMPLAINTS. CALL LIGHT WITHIN REACH. FAMILY AT BEDSIDE.
[2016-03-27 08:19] VITALS: BP 184/68
[2016-03-27 12:23] VITALS: BP 176/68
--- NOTE | 2016-03-27 13:28 | NUR ---
TELEPHONED [facility] X2. RECEIVED NO ANSWER. COULD NOT VERIFY ACCEPTANCE FOR TODAY.
--- NOTE | 2016-03-27 15:30 | NUR ---
SPOKE WITH DR. DENTON ABOUT LEAVING IV OUT. OK AT THIS TIME. ANTIBIOTICS CHANGED TO IM AND PO. PATIENT IN BED WITH NO COMPLAINTS. CALL LIGHT WITHIN REACH.
[2016-03-27 15:41] VITALS: BP 196/68
--- NOTE | 2016-03-27 18:55 | NUR ---
PATIENT IN BED WITH EYES CLOSED RESTING QUIETLY AT THIS TIME. NO COMPLAINTS. FAMILY AT BEDSIDE. CALL LIGHT WITHIN REACH.
--- NOTE | 2016-03-27 20:18 | NUR ---
Late Entry [address] [facility] Acute Rehab Unit x2 . No answer. Family had also called and the patient was not expected by staff. CM spoke w/ DR Ervin during her rounds. Patient has been cleared for discharge to rehab. TC at 1500. CM spoke w/ staff. The 2 nurses on Rehab were not aware of a scheduled admission for today. They stated they would attempt to contact the traffic coordinator to clarify expected date of admission.
[2016-03-27 21:00] VITALS: BP 184/67
[2016-03-28 00:45] VITALS: BP 138/60
--- NOTE | 2016-03-28 02:01 | NUR ---
PATIENT RESTING IN SEMI-FOWLERS POSITION. FAMILY AT BEDSIDE. PATIENT DENIES NEEDS AT THIS TIME.
[2016-03-28 05:00] VITALS: BP 122/66
[2016-03-28 05:08] LABS: BASOPHILS 0.3 % (0.0-2.0); EOSINOPHILS 1.7 % (0-7); HEMATOCRIT 34.3 % (36.0-48.0); HEMOGLOBIN 10.8 g/dL (12-16); IMMATURE GRANULOCYTES 2.3 % (0-5); LYMPHOCYTES 13.1 % (15-50); MCHC 31.5 g/dL (31.0-37.0); MCV 95.3 fL (80.0-100.0); MEAN PLATELET VOLUME 9.2 fL (7.4-10.4); MONOCYTES 10.2 % (2-11); NEUTROPHILS 72.4 % (40-80); PLATELET COUNT 537 10x3/uL (130-400); RDW 14.1 % (11.5-14.5)
[2016-03-28 05:53] LABS: ALBUMIN 2.1 g/dL (3.4-5.0); ALKALINE PHOSPHATASE 70 U/L (46-116); ALT (SGPT) 21 U/L (10-68); BILIRUBIN - TOTAL 0.33 mg/dL (0.2-1.3); CALC OSMOLALITY 265 mosm/kg (275-300); CALCIUM 8.7 mg/dL (8.5-10.1); CARBON DIOXIDE 27.5 mmol/L (21.0-32.0); CHLORIDE - SERUM 97 mmol/L (98-107); CREATININE - SERUM 0.7 mg/dL (0.6-1.3); GLUCOSE 108 mg/dL (74-106); POTASSIUM - SERUM 3.8 mmol/L (3.5-5.1); PROTEIN - SERUM 5.9 g/dL (6.4-8.2); SODIUM 132 mmol/L (136-145); UREA NITROGEN 12 mg/dL (7-18); eGFR NON AFRICAN AMERICAN 84 mL/min (90-120)
--- NOTE | 2016-03-28 07:00 | NUR ---
REPORT RECIEVED ASSUMED CARE. PATIENT IN BED WITH NO COMPLAINTS OR SIGNS OF DISTRESS. FAMILY AT BEDSIDE. CALL LIGHT WITHIN REACH.
--- NOTE | 2016-03-28 08:30 | NUR ---
PATIENT IN BED WITH NO COMPLAINTS. FAMILY AT BEDSIDE. PATIENT STATED FEELING BETTER AND SLEPT WELL LAST NIGHT. CALL LIGHT WITHIN REACH. REFUSING RIGHT SCD.
[2016-03-28 09:42] VITALS: BP 198/71
--- NOTE | 2016-03-28 13:00 | NUR ---
PATIENT SITTING UP IN CHAIR AT THIS TIME PER PT. NO COMPLAINTS. FAMILY AT BEDSIDE. CALL LIGHT WITHIN REACH.
--- NOTE | 2016-03-28 15:00 | NUR ---
SPOKE WITH CHAD JOINER ABOUT HOLDING PATIENTS CARDIZEM THAT WAS ADDED BY DR. JEONG TODAY BECAUSE PATIENTS HR WAS SINUSBRADY 55. NO NEW ORDERS AT THIS TIME.
[2016-03-28 17:20] VITALS: BP 167/70
--- NOTE | 2016-03-28 18:50 | NUR ---
PATIENT SITTING UP IN BED WITH EYES OPEN. NO COMPLAINTS. STUART INTACT. DRESSING TO LEFT ANKLE CLEAN AND DRY. CALL IGHT WITHIN REACH.
[2016-03-28 19:00] VITALS: BP 164/64
--- NOTE | 2016-03-28 20:01 | NUR ---
PATIENT AND FAMILY ANXIOUS FOR DISCHARGE TO [facility]. TC TO [facility]. SPOKE WITH JARAD. PATIENT'S NAME IS ON THE BOARD. AWAITING SKOOG OPERATOR'S REVIEW. F/U Ruslan/ HEIDE THE STOCK CLERK IN THE AM.
--- NOTE | 2016-03-28 21:10 | NUR ---
PATIENT RESTING IN BED WITH EYES CLOSED. AROUSES TO VOICE. NO SIGNS OF DISTRESS NOTED. SCHEDULED MEDICATIONS GIVEN. DENIES ANY NEEDS AT THIS TIME. FAMILY MEMBER PRESENT. BED LOW. CALL LIGHT IN REACH
[2016-03-29 04:00] VITALS: BP 169/56
[2016-03-29 05:17] LABS: BASOPHILS 0.3 % (0.0-2.0); EOSINOPHILS 1.5 % (0-7); HEMATOCRIT 33.1 % (36.0-48.0); HEMOGLOBIN 10.2 g/dL (12-16); IMMATURE GRANULOCYTES 1.7 % (0-5); LYMPHOCYTES 14.5 % (15-50); MCHC 30.8 g/dL (31.0-37.0); MEAN PLATELET VOLUME 9.4 fL (7.4-10.4); MONOCYTES 13.7 % (2-11); NEUTROPHILS 68.3 % (40-80); PLATELET COUNT 568 10x3/uL (130-400); RBC 3.52 10x6/uL (4.00-5.40); WBC 13.2 10x3/uL (4.8-10.8)
[2016-03-29 05:43] LABS: ALKALINE PHOSPHATASE 71 U/L (46-116); ALT (SGPT) 19 U/L (10-68); BILIRUBIN - TOTAL 0.23 mg/dL (0.2-1.3); CALC OSMOLALITY 262 mosm/kg (275-300); CALCIUM 8.3 mg/dL (8.5-10.1); CARBON DIOXIDE 26.7 mmol/L (21.0-32.0); CHLORIDE - SERUM 97 mmol/L (98-107); CREATININE - SERUM 0.6 mg/dL (0.6-1.3); GLUCOSE 89 mg/dL (74-106); POTASSIUM - SERUM 4.1 mmol/L (3.5-5.1); PROTEIN - SERUM 5.1 g/dL (6.4-8.2); SODIUM 132 mmol/L (136-145); UREA NITROGEN 10 mg/dL (7-18); eGFR NON AFRICAN AMERICAN > 90 mL/min (90-120)
--- NOTE | 2016-03-29 07:20 | NUR ---
AWAKE AND ALERT THIS MORNING. DAUGHTERS AT BEDSIDE. DENIES PAIN AT THIS TIME. POSITIONED ON RIGHT SIDE. RESPIRATIONS EVEN AND NON LABORED. STUART CATHETER CLAMPED AT THIS TIME TO INITIATE BLADDER TRAINING. BED ALARM ON AND SRX2. BED IN LOWEST POSITION WITH WHEELS LOCKED. CALL LIGHT IN REACH, WILL CONITNUE WITH PLAN OF CARE.
[2016-03-29 08:16] VITALS: BP 179/65
--- NOTE | 2016-03-29 08:44 | NUR ---
SCHEDULED MEDICATIONS ADMINISTERED AT THIS TIME. ASSESSMENT PERFORMED PER FLOWSHEET. STUART CATHETER REMAINS CLAMPED. INCISION TO ABDOMEN IS WELL APPROXIMATED WITH NO S/S OF INFECTION PRESENT AND STAPLE REMAIN INTACT. MEDICATIONS TAKEN WITHOUT DIFFICULTY. HEART RATE 65 SINUS RHYTHM PER JORY, CUSTOMER SERVICES SUPERVISOR. DENIES FURTHER NEEDS OR PAIN. PULLED UPRIGHT AND POSITIONED ON BACK WITH HOB AT 45 DEGREES. CALL LIGHT IN REACH, BED ALARM ON. WILL CONTINUE WITH PLAN OF CARE.
--- NOTE | 2016-03-29 10:27 | NUR ---
CM MET WITH PATIENT AND FAMILY REGARDING D/C TODAY. PATIENT WILL GO BY AMBULANCE TO [facility]. DAUGHTER SIGNED THE DISCHARGE IMM NOTICE.
--- NOTE | 2016-03-29 11:50 | NUR ---
SCHEDULED MEDICATIONS ADMINISTERED AT THIS TIME WELL PRN NUCYNTA FOR PAIN 8/10 IN THE LEFT ANKLE AND BACK. PT BACK TO BED PER PHYSICAL THERAPY AND PT CLEANED OF INCONTINENT EPISODE OF STOOL. STUART CATHETER CARE PROVIDED WITH STUART CATHETER CARE WIPES. PT DENIES FURTHER NEEDS. DAUGHTERS REMAIN AT BEDSIDE. CALL LIGHT IN REACH, WILL CONTINUE WITH PLAN OF CARE.
[2016-03-29 12:09] VITALS: BP 171/72
--- NOTE | 2016-03-29 13:00 | NUR ---
REPORT CALL[facility] TO ROCHELLE RUSH AT [facility]. WILL CONTINUE TO MONITOR PT UNTIL AMBULANCE ARRIVES FOR TRANSPORTATION.
--- NOTE | 2016-03-29 14:16 | CN ---
PATIENT NAME:JIA MENDOZA MEDICAL RECORD: [id number] : 29 LOCATION:D.MS Mistry2215 ADMIT DATE: 03/23/16 ACCOUNT: [id number] CONSULTING PHYSICIAN: MADELEINE JEONG MD REFERRING PHYSICIAN: THAD DENTON MD DATE OF CONSULTATION: 03/26/2016 Cardiology consultation DIAGNOSES: 1. Atrial fibrillation with rapid ventricular response. 2. Status post ankle fracture and surgery. 3. Coronary artery disease. 4. Previous percutaneous transluminal coronary angioplasty stent. 5. Hypertension. HISTORY OF PRESENT ILLNESS: Mrs. Mendoza has no past history of atrial fibrillation. She is admitted with ankle fracture, underwent surgery. She is in atrial fibrillation with rapid ventricular response. She is on at home ____, this was not continued here as well. She was on valsartan at home, heart rate is now in the 140s. Her systolic blood pressure is good in the 120s. She does not feel palpitations. She is not having any chest pain or chest discomfort. She was placed on amiodarone since the onset of the atrial fibrillation, but she is still tachycardic despite the amiodarone. PHYSICAL EXAMINATION: GENERAL APPEARANCE: Well-nourished, well-developed, appears stated age. Level of distress, comfortable. PSYCHIATRIC: Mental status, alert, normal affect. Orientation, oriented to time, place and person. EYES: Lids and conjunctiva, noninjected. No discharge, no pallor. ENT: Lips, teeth, gums, normal dentition. Oropharynx, no cyanosis, no pallor. NECK: Carotid arteries, bilateral normal upstroke, no bruits, no thrills. JUGULAR VEINS: No jugular venous pressure or distention. CERVICAL LYMPH NODES: Nontender, nonenlarged. THYROID: Not enlarged. Nontender. No nodules. LUNGS: Respiratory effort, unlabored. CHEST: Normal curvature. No thoracic deformity. No chest wall tenderness. Percussion, resonant. Auscultation, clear. No wheezes, no rales, no rhonchi. CARDIOVASCULAR: Precordial exam, nondisplaced. No heaves or pericardial thrills. Irregularly irregular in atrial fibrillation. Heart sounds, normal S1, normal S2. No S3, no gallop, no rub. Systolic murmur, not heard. Diastolic murmur, not heard. EXTREMITIES: No cyanosis, no edema. Peripheral pulses, full and equal in all extremities, except as noted. No bruits appreciated. ABDOMEN: Soft, nondistended. Normal aorta. No bruit. Nontender. No masses. Liver, nontender, no hepatomegaly. Spleen, nontender, no splenomegaly. MUSCULOSKELETAL: No joint tenderness. No joint swelling. No erythema. NEUROLOGICAL: Normal gait, normal strength, normal tone. SKIN: Warm and dry. REVIEW OF SYSTEMS: The patient reports easy bruising but reports no swollen glands. The patient reports no fever, no night sweats, no significant weight gain, no significant weight loss. No significant exercise tolerance. The patient reports no dry eyes, no irritation, no vision change. Patient reports CONSULT REPORT [id number] JIA MENDOZA no difficulty hearing and no ear pain. Patient reports no frequent nose bleeds or nose and sinus problems. Patient reports on arm pain on exertion. No shortness of breath while lying down. No history of heart murmur. Patient reports no cough, no wheezing or coughing up blood. Patient reports no abdominal pain, no vomiting. Normal appetite. No diarrhea and not vomiting blood. No nausea and no constipation. Patient reports no incontinence. No difficulty urinating. No hematuria. No increased frequency. Patient reports no muscle aches. No weakness, no arthralgias, no back pain. No swelling of the extremities. Patient reports no abnormal mole, no jaundice, no rashes. Reports no loss of consciousness. No weakness and no numbness. No seizures, dizziness, or headaches. The patient reports no depression, no sleep disturbance, feeling safe in a relationship and no alcohol abuse. Patient reports on fatigue. Reports no runny nose or sinus pressure. No itching, no hives, and no frequent sneezing. OVERALL IMPRESSION: Atrial fibrillation with rapid ventricular response. At this time, we will put her on sotalol 120 mg b.i.d. Hopefully, this will do a better job of controlling her heart rate and possibly restore sinus rhythm. TRANSINT:[id number] Voice Confirmation ID: [id number] DOCUMENT ID: [id number] MADELEINE JEONG MD at 1416 CC: [id number] DICTATION DATE: 03/26/16[address]06 STREET RAILWAY LINE INSTALLER: 03/26/16 2357 ADM IN [facility] [address] [id number]
--- NOTE | 2016-03-29 15:50 | NUR ---
DISCHARGED AT THIS TIME VIA AMBULANCE.
== END 2016-03-29 15:50 | DRG 492 ==
LOC: D.ER 04:04 → D.MS 05:29
PROVIDERS: Emergency Medicine; Orthopaedic Surgery Sports Medicine; ADMIT Family Medicine
PROC: 0QSH04Z Reposition Left Tibia with Internal Fixation Device, Open Approach (ICD-10-PCS; 2016-03-23)
PROC: 0QSK04Z Reposition Left Fibula with Internal Fixation Device, Open Approach (ICD-10-PCS; principal; 2016-03-23 12:45)
DX: S82.852A Displaced trimalleolar fracture of left lower leg, initial encounter for closed fracture (principal); J18.9 Pneumonia, unspecified organism; I69.354 Hemiplegia and hemiparesis following cerebral infarction affecting left non-dominant side; J44.0 Chronic obstructive pulmonary disease with (acute) lower respiratory infection; W19.XXXA Unspecified fall, initial encounter; I48.91 Unspecified atrial fibrillation; I25.10 Atherosclerotic heart disease of native coronary artery without angina pectoris; I10 Essential (primary) hypertension; E78.5 Hyperlipidemia, unspecified; E11.9 Type 2 diabetes mellitus without complications; M19.90 Unspecified osteoarthritis, unspecified site

== ENCOUNTER 2016-12-11 03:25 | Inpatient (IN) | payer MEDICARE ==
[2016-12-11] VITALS (13 sets, daily range): BP systolic 109–186; BP diastolic 45–90; BMI 24.2
--- NOTE | 2016-12-11 03:05 | NUR ---
PT ARRIVED ON FLOOR VIA STRETCHER FROM [facility]. DAUGHTER AT SIDE. CHRONIC STUART ON ADMIT. ASSESSMENT PER RN. INITIATED ON DILAUDID PRAWN TRAWLER HAND AND IV FLUIDS. REPORTS NO OTHER NEEDS AT THIS TIME. CALL LIGHT WITHIN REACH. PT ON SHILPA ALARM AND SCD'S ATTACHED PER ORDER.
[~2016-12-11 03:25] MED LIST changes: +COLACE100 MG PO; +DIOVAN HCT 160/1 TAB PO; -DIOVAN HCT 320/1 TAB PO; +DULCOLAX10 MG/SUPP RC; +FLORAJEN3 CAPS460 MG PO; +MILK OF MAGNESI30 ML PO; +OMNICEF300 MG PO; +SENOKOT-S TABLE1 TAB PO; +ZPAK PO
[2016-12-11] MEDS ORDERED: BENADRYL25 MG PO (05:02)
[2016-12-11] MEDS ORDERED: NUTRISOURCE FI1 EACH PO (05:03)
[2016-12-11] MEDS ORDERED: CRANBERRY 400 M1 TA1 PO (05:05)
[2016-12-11] MEDS ORDERED: HYDROXYUREA500 MG PO (05:11)
[2016-12-11] MEDS ORDERED: GLUCOPHAGE1000 MG PO (05:12)
[2016-12-11] MEDS ORDERED: ZOFRAN4 MG PO (05:18)
[2016-12-11] MEDS ORDERED: ZYRTEC10 MG PO (05:19)
[2016-12-11] MEDS ORDERED: [UNRECOGNIZED DRUG - OTHER] PO (05:21)
[2016-12-11] MEDS ORDERED: PROVENTIL HFA6.7 GM INH (05:24)
[2016-12-11 06:32] LABS: HEMATOCRIT 28.9 % (36.0-48.0); HEMOGLOBIN 9.5 g/dL (12-16); MCH 34.9 pg (26.0-34.0); MCHC 32.9 g/dL (31.0-37.0); MCV 106.3 fL (80.0-100.0); MEAN PLATELET VOLUME 8.8 fL (7.4-10.4); PLATELET COUNT 374 10x3/uL (130-400); RBC 2.72 10x6/uL (4.00-5.40); RDW 16.4 % (11.5-14.5); WBC 29.3 10x3/uL (4.8-10.8)
--- NOTE | 2016-12-11 06:36 | NUR ---
RESTING QUITLY WITH EYES CLOSED. RESP EVEN AND UNLABORED. DAUGHTER AT [facility]. IV INFUSING PER ORDER.
[2016-12-11 06:50] LABS: ALBUMIN 2.2 g/dL (3.4-5.0); ANION GAP 13.3 mmol/L (8-16); BILIRUBIN - TOTAL 0.2 mg/dL (0.2-1.3); CARBON DIOXIDE 21.8 mmol/L (21.0-32.0); CREATININE - SERUM 1.1 mg/dL (0.6-1.3); POTASSIUM - SERUM 5.1 mmol/L (3.5-5.1); PROTEIN - SERUM 5.9 g/dL (6.4-8.2)
[2016-12-11 06:51] LABS: LYMPHOCYTES 9 % (15-50); MONOCYTES 3 % (2-11); NEUTROPHILS 88 % (40-80); PLATELET ESTIMATE NORMAL; PLATELET MORPHOLOGY GIANT PLTS PRESENT
--- NOTE | 2016-12-11 07:15 | NUR ---
PATIENT RECEIVED ALERT IN MID GARNETT POSITION WITH DAUGHTER AT BEDSIDE. NO SIGNS OF DISTRESS NOTED. SIDE RAILS UP X2. BED IN LOW POSITION. CALL LIGHT AND METAL STUD FRAMER BUTTON IN REACH. RATES PAIN 2/10. SHILPA ALARM ON.
--- NOTE | 2016-12-11 12:10 | NUR ---
PATIENT IN MID GARNETT POSITION RESTING WITH EYES CLOSED. RESPIRATIONS EVEN AND UNLABORED. SIDE RAILS UP X2. BED IN LOW POSITION. CALL LIGHT IN REACH. DAUGHTER PRESENT.
--- NOTE | 2016-12-11 13:40 | NUR ---
PRE PROCEDURE MEDICATION ADMINISTERED WITH SIP OF WATER. WELL TOLERATED. DAUGHTER AT BEDSIDE.
--- NOTE | 2016-12-11 14:30 | NUR ---
PATIENT OFF FLOOR TO SURGERY VIA BED.
--- NOTE | 2016-12-11 17:05 | NUR ---
PATIENT BACK TO ROOM FROM PACU. NO SIGNS OF DISTRESS NOTED. VITAL SIGNS STABLE. FAMILY PRESENT. 4 LAP SITES NOTED TO ABD. SIDE RAILS UP X2. BED IN LOW POSITION. CALL LIGHT IN REACH.
--- NOTE | 2016-12-11 19:00 | NUR ---
REPORT RECEIVED AND CARE OF PT ASSUMED. PT LYING IN LOW GARNETT'S POSITION WITH EYES CLOSED. IV IN LEFT AC PATENT WITH NS INFUSING AT 75 ML / HR. OIL AND GAS FIELD TECHNICIAN / DILAUDID IN USE FOR PAIN CONTROL. STUART CATHETER DRAINING TO GRAVITY WITH YELLOW URINE IN COLLECTION BAG. WILL MONITOR CLOSELY FOR NEEDS. DAUGHTER IS AT BEDSIDE.
--- NOTE | 2016-12-11 20:42 | NUR ---
HS MEDICATIONS GIVEN. WILL CONTINUE TO MONITOR FOR NEEDS.
--- NOTE | 2016-12-11 21:00 | NUR ---
HS SNACK OF JELLO X2 GIVEN...CONSUMED 100% WITH NO NAUSEA.
--- NOTE | 2016-12-11 21:40 | NUR ---
GAVE ANOTHER JELLO PER REQUEST...GOOD APPETITE WITH NO NAUSEA.
--- NOTE | 2016-12-11 23:01 | NUR ---
PT RESTING IN SEMI GARNETT'S POSITION WITH EYES CLOSED AND EASY RESPIRATIONS. WILL CONTINUE TO MONITOR FOR NEEDS.
[2016-12-12 03:57] VITALS: BP 135/60
[2016-12-12 05:54] LABS: BASOPHILS 0 % (0-2); EOSINOPHILS 0.1 % (0-7); HEMATOCRIT 27.8 % (36.0-48.0); HEMOGLOBIN 9.1 g/dL (12-16); IMMATURE GRANULOCYTES 1.4 % (0-5); LYMPHOCYTES 5.2 % (15-50); MCH 34.3 pg (26.0-34.0); MCHC 32.7 g/dL (31.0-37.0); MCV 104.9 fL (80.0-100.0); MEAN PLATELET VOLUME 8.9 fL (7.4-10.4); NEUTROPHILS 87.3 % (40-80); PLATELET COUNT 380 10x3/uL (130-400); RBC 2.65 10x6/uL (4.00-5.40); RDW 16.6 % (11.5-14.5)
[2016-12-12 06:02] LABS: ALBUMIN 1.8 g/dL (3.4-5.0); ALKALINE PHOSPHATASE 124 U/L (46-116); BILIRUBIN - TOTAL 0.15 mg/dL (0.2-1.3); CALCIUM 7.9 mg/dL (8.5-10.1); CARBON DIOXIDE 20.4 mmol/L (21.0-32.0); CHLORIDE - SERUM 102 mmol/L (98-107); MAGNESIUM - SERUM 1.1 mg/dL (1.8-2.4); PHOSPHOROUS 3.3 mg/dL (2.5-4.9); POTASSIUM - SERUM 5.2 mmol/L (3.5-5.1); PROTEIN - SERUM 5.6 g/dL (6.4-8.2); SODIUM 131 mmol/L (136-145)
[2016-12-12 06:05] LABS: WBC 19.4 10x3/uL (4.8-10.8)
[2016-12-12 06:08] LABS: ALT (SGPT) 49 U/L (10-68); CALC OSMOLALITY 266 mosm/kg (275-300); CREATININE - SERUM 0.7 mg/dL (0.6-1.3); GLUCOSE 152 mg/dL (74-106); UREA NITROGEN 15 mg/dL (7-18); eGFR NON AFRICAN AMERICAN 84 mL/min (90-120)
--- NOTE | 2016-12-12 06:37 | NUR ---
MAG LEVEL 1.1 THIS AM. GIVING X4 MAG 1 GM RIDERS PER ELECTROLYTE PROTOCOL. STARTING BAG ONE NOW.
--- NOTE | 2016-12-12 08:10 | NUR ---
SHIFT ASSESSMENT COMPLETE. PATIENT ALERT/VERBAL. LYING IN BED. C/O IV HURTING. INFILTRATED UPON INSPECTION. RESITED TO LEFT HAND WITH NO DIFFICULTIES. PATENT FLUSHES WITH BLOOD RETURN. SCREEN REPAIRER CRUSHER AT 0.1/10 WITH NO LOCKOUT. DAUGHTER AT BEDSIDE. NO COMPLAINTS. BED IN LOWEST POSITION. CALL LIGHT IN REACH. WILL CONTINUE TO MONITOR.
[2016-12-12 08:38] VITALS: BP 143/66
[2016-12-12 12:08] VITALS: BP 149/64
[2016-12-12 16:16] VITALS: BP 154/68
--- NOTE | 2016-12-12 19:00 | NUR ---
REPORT RECEIVED AND CARE OF PT ASSUMED. PT LYING IN SEMI GARNETT'S POSITION VISITING WITH FAMILY MEMBER. IV IN LEFT HAND PATENT, BUT PT STATES IT IS HURTING AND SHE WANTS REPLACED. STUART CATHETER DRAINING TO GRAVITY WITH YELLOW URINE IN COLLECTION BAG. WILL MONITOR CLOSLEY FOR NEEDS. PT ON TURN Q2HR SCHEDULE.
--- NOTE | 2016-12-12 19:25 | NUR ---
REMOVED IV IN LEFT HAND WITH CATHETER TIP INTACT. RE-SITED IV TO RIGHT AC WITH 20 GUAGE CATHETER IN ONE STICK. IV FLUIDS AND CORRECTIONAL SUPERVISOR RE-STARTED.
[2016-12-12 19:55] VITALS: BP 168/65
--- NOTE | 2016-12-12 20:20 | NUR ---
HS SNACK OF APPLESAUCE GIVEN TO PT.
--- NOTE | 2016-12-12 20:55 | NUR ---
HS MEDICATIONS GIVEN. FSBS 149 THIS CHECK REQUIRING NO COVERAGE PER SLIDING SCALE.
[2016-12-12 23:47] VITALS: BP 161/71
[2016-12-13 04:01] VITALS: BP 130/73
[2016-12-13 05:55] LABS: BASOPHILS 0 % (0-2); EOSINOPHILS 0.5 % (0-7); HEMATOCRIT 28.7 % (36.0-48.0); HEMOGLOBIN 9.5 g/dL (12-16); IMMATURE GRANULOCYTES 0.7 % (0-5); LYMPHOCYTES 10.3 % (15-50); MCH 35.1 pg (26.0-34.0); MCHC 33.1 g/dL (31.0-37.0); MCV 105.9 fL (80.0-100.0); MEAN PLATELET VOLUME 8.8 fL (7.4-10.4); NEUTROPHILS 79.5 % (40-80); PLATELET COUNT 398 10x3/uL (130-400); RBC 2.71 10x6/uL (4.00-5.40); RDW 16.7 % (11.5-14.5); WBC 20.2 10x3/uL (4.8-10.8)
[2016-12-13 06:05] LABS: ANION GAP 13.8 mmol/L (8-16); CALCIUM 8.4 mg/dL (8.5-10.1); CARBON DIOXIDE 22.8 mmol/L (21.0-32.0); CREATININE - SERUM 0.8 mg/dL (0.6-1.3); POTASSIUM - SERUM 4.6 mmol/L (3.5-5.1)
[2016-12-13 06:07] LABS: MAGNESIUM - SERUM 1.7 mg/dL (1.8-2.4)
--- NOTE | 2016-12-13 06:20 | NUR ---
MAG LEVEL 1.7 WITH AM LABS REQUIRING COVERAGE WITH X2 1 GM IV RIDERS PER ELECTROLYTE PROTOCOL. FIRST DOSE STARTED NOW.
--- NOTE | 2016-12-13 06:46 | NUR ---
GLUCOSE 55 WITH AM LAB...GAVE 35 ML OF D50 AND ORANGE JUICE. RE-CHECKED AND IS NOW 74...STILL DRINKING JUICE. WILL CONTINUE TO MONITOR.
--- NOTE | 2016-12-13 07:40 | NUR ---
PT AOX4 RESP EVEN AND NONLABORED PT DENIES NEEDS AT THIS TIME SRX2 BED AT LOWEST SETTING CALL LIGHT WITHIN REACH WILL CONTINUE TO MONITOR
[2016-12-13 12:40] VITALS: BP 150/70
[2016-12-13 16:56] VITALS: BP 147/56
--- NOTE | 2016-12-13 19:17 | NUR ---
PT SITTING IN BED VISITING WITH DAUGHTER, BED IN LOW POSITION, CALL LIGHT IN REACH, NO SIGNS OF DISTRESS, PT LT UPPER LOBE HAS RATTLINGWITH INHALATION AND PT STATED COUGH WITH SOME PHLEGM, GAVE PT AN INCENTIVE SPIROMETER AND ENCOURAGED HOURLY USAGE TO BREAK UP CHEST. CONTINUE WITH CARE PLAN
[2016-12-13 20:00] VITALS: BP 138/72
--- NOTE | 2016-12-13 22:46 | NUR ---
PT LYING IN BED ON BACK, EYES ARE CLOSED, EVEN RISE AND FALL OF CHEST, DAUGHTER AT BEDSIDE, CONTINUE TO MONITOR
[2016-12-14] VITALS: BP 163/72
--- NOTE | 2016-12-14 02:45 | NUR ---
PT IN BED RESTING WITH NO DISTRESS. VISITOR AT THE BEDSIDE. SIDE RAILS X 2. BED LOW. BED ALARM ON. CALL LIGHT IN REACH.
[2016-12-14 04:00] VITALS: BP 149/70
--- NOTE | 2016-12-14 08:30 | NUR ---
ASSESSMENT COMPLETE. IV TO L HAND PATENT. NS INFUSING AT KVO. LEGALLY BLIND. SCD'S IN USE TO BILAT LEGS. STUART PATENT DRAINING YELLOW URINE. WOUNDS X 2 TO BUTTOCKS WITH BUTT PASTE IN USE. DAUGHTER AT BEDSIDE.
--- NOTE | 2016-12-14 08:45 | NUR ---
CALLED TO ROOM BY FAMILY. IV FOUND SITTING ON TOP OF PATIENT'S HAND. CATHETER TIP INTACT.
[2016-12-14 09:06] VITALS: BP 151/73
--- NOTE | 2016-12-14 09:15 | NUR ---
IV SITED TO R WRIST WITH 22 GUAGE X 1 ATTEMPT BY CAMILLE LUGO RN.
[2016-12-14 10:25] LABS: BASOPHILS 0.1 % (0-2); EOSINOPHILS 0.4 % (0-7); HEMATOCRIT 28.1 % (36.0-48.0); HEMOGLOBIN 9.3 g/dL (12-16); IMMATURE GRANULOCYTES 0.7 % (0-5); LYMPHOCYTES 8.9 % (15-50); MCHC 33.1 g/dL (31.0-37.0); MCV 105.6 fL (80.0-100.0); MEAN PLATELET VOLUME 8.7 fL (7.4-10.4); MONOCYTES 8.5 % (2-11); NEUTROPHILS 81.4 % (40-80); PLATELET COUNT 368 10x3/uL (130-400); RBC 2.66 10x6/uL (4.00-5.40); RDW 16.6 % (11.5-14.5); WBC 19.3 10x3/uL (4.8-10.8)
[2016-12-14 10:36] LABS: ALBUMIN 2.1 g/dL (3.4-5.0); ALKALINE PHOSPHATASE 107 U/L (46-116); BILIRUBIN - TOTAL 0.43 mg/dL (0.2-1.3); CALCIUM 8.5 mg/dL (8.5-10.1); CARBON DIOXIDE 21.8 mmol/L (21.0-32.0); CHLORIDE - SERUM 95 mmol/L (98-107); CREATININE - SERUM 0.7 mg/dL (0.6-1.3); POTASSIUM - SERUM 4.2 mmol/L (3.5-5.1); SODIUM 127 mmol/L (136-145); UREA NITROGEN 11 mg/dL (7-18); eGFR NON AFRICAN AMERICAN 84 mL/min (90-120)
[2016-12-14 10:46] LABS: ALT (SGPT) 63 U/L (10-68); CALC OSMOLALITY 251 mosm/kg (275-300); GLUCOSE 61 mg/dL (74-106)
--- NOTE | 2016-12-14 10:50 | NUR ---
COMMERCIAL CREDIT PORTFOLIO MANAGER SHOWING ST WITH FREQUENT PVCS 105 PER TECH.
--- NOTE | 2016-12-14 11:54 | NUR ---
SITTING UP IN CHAIR. DAUGHTER AT BEDSIDE.
[2016-12-14 12:27] VITALS: BP 112/76
--- NOTE | 2016-12-14 12:39 | NUR ---
STUART CATHETER REMOVED. CATHETER TIP INTACT. 16 [address] [place] STUART CATHETER INSERTED WITHOUT DIFFICULTY. UA/C&S SENT TO LAB.
[2016-12-14 14:09] LABS: APPEARANCE CLOUDY (CLEAR); BILIRUBIN NEGATIVE (NEGATIVE); COLOR YELLOW (YELLOW); GLUCOSE NEGATIVE (NEGATIVE); KETONE NEGATIVE (NEGATIVE); NITRITE NEGATIVE (NEGATIVE); PROTEIN NEGATIVE (NEGATIVE); UROBILINOGEN NORMAL (NORMAL)
[2016-12-14 14:10] LABS: BACTERIA MODERATE /hpf (NONE SEEN); EPITHELIAL CELLS OCC /hpf (0-5); MUCUS <1+ /lpf (NONE SEEN); RED CELLS - URINE 0-5 /hpf (0-5)
--- NOTE | 2016-12-14 15:08 | NUR ---
NUTRITION F/U CHART REVIEWED. PT VISIT. ADA DIET WITH POOR PO INTAKE AT THIS TIME. PT STATES SHE HASN'T FELT LIKE EATING. ENCOURAGED PT TO TRY TO INCREASE PO INTAKE. ASKING FOR ICE CREAM AT THIS TIME. WILL PROVIDE. PT DECLINES JEWELS GARZON. RD FOLLOWING
--- NOTE | 2016-12-14 15:50 | NUR ---
NOTIFIED BY PLANNING LEAD THAT PATIENT'S RHYTHM IS NOW AFIB WITH BEATS OF A AFLUTTER 130-170'S. PATIENT RESTING QUIETLY IN BED. DENIES FEELING INCREASED HEART RATE. DAUGHTER AT BEDSIDE. MAGDA QUARLES APN NOTIFIED. ORDER RECIEVED FOR FLATBED OWNER OPERATOR CONSULT.
[2016-12-14 16:14] VITALS: BP 117/69
--- NOTE | 2016-12-14 18:40 | NUR ---
NOTIFIED BY BzzAgent THAT PATIENT'S RHYTHM IS UCAF 150'S. DR JEONG NOTIFIED. ORDERED RECIEVED FOR SOTALOL.
[2016-12-14 20:00] VITALS: BP 106/55
[2016-12-15 05:08] LABS: BASOPHILS 0.1 % (0-2); EOSINOPHILS 1.1 % (0-7); HEMATOCRIT 26.4 % (36.0-48.0); HEMOGLOBIN 8.9 g/dL (12-16); IMMATURE GRANULOCYTES 0.9 % (0-5); LYMPHOCYTES 14.2 % (15-50); MCH 35.2 pg (26.0-34.0); MCHC 33.7 g/dL (31.0-37.0); MCV 104.3 fL (80.0-100.0); MEAN PLATELET VOLUME 8.8 fL (7.4-10.4); MONOCYTES 12.8 % (2-11); NEUTROPHILS 70.9 % (40-80); PLATELET COUNT 356 10x3/uL (130-400); RBC 2.53 10x6/uL (4.00-5.40); RDW 16.1 % (11.5-14.5)
[2016-12-15 05:09] LABS: WBC 11.6 10x3/uL (4.8-10.8)
[2016-12-15 05:39] LABS: ALBUMIN 1.9 g/dL (3.4-5.0); ALKALINE PHOSPHATASE 83 U/L (46-116); CALCIUM 7.9 mg/dL (8.5-10.1); CHLORIDE - SERUM 96 mmol/L (98-107); CREATININE - SERUM 0.6 mg/dL (0.6-1.3); POTASSIUM - SERUM 3.9 mmol/L (3.5-5.1); PROTEIN - SERUM 4.9 g/dL (6.4-8.2); SODIUM 129 mmol/L (136-145); UREA NITROGEN 10 mg/dL (7-18); eGFR NON AFRICAN AMERICAN > 90 mL/min (90-120)
[2016-12-15 05:41] LABS: ALT (SGPT) 44 U/L (10-68); CALC OSMOLALITY 258 mosm/kg (275-300); GLUCOSE 109 mg/dL (74-106)
--- NOTE | 2016-12-15 07:35 | NUR ---
PT AOX4 RESP EVEN AND NONLABORED PT DENIES NEEDS AT THIS TIME IV TO RIGHT WRIST PATENT AND INTACT SRX2 BED AT LOWEST SETTING CALL LIGHT WITHIN REACH WILL CONTINUE TO MONITOR
[2016-12-15 08:43] VITALS: BP 150/58
--- NOTE | 2016-12-15 10:17 | HP ---
PATIENT: JIA MENDOZA MEDICAL RECORD: [id number] ACCOUNT: [id number] LOCATION:D.MS Mistry2229 : 29 ADMISSION DATE: 12/12/16 HISTORY AND PHYSICAL EXAMINATION CHIEF COMPLAINT: Pain. HISTORY: The patient has been having nausea, vomiting, and abdominal pain for a while. She saw Dr. Gautam in the office. She has gallstones. She is to undergo laparoscopic cholecystectomy, intraoperative cholangiography, possible liver biopsy, possible open procedure. She is at increased risk for an open procedure as she has had previous abdominal operations including placement of mesh for a central abdominal hernia. I received a call from the Emergency Room in [place] last night stating that Ms. Mendoza was there and was ill and desired to come to [place]. She had called the office yesterday complaining of weakness, nausea, vomiting as well as loss of appetite, and diarrhea. Nothing exacerbates. Nothing alleviates. Even Zofran is not helping anymore. She has been evaluated by Dr. Gautam in the past. REVIEW OF SYSTEMS: CONSTITUTIONAL: No recent illnesses. No constipation. CARDIOVASCULAR: No palpitations. PULMONARY: No shortness of breath. GENERAL: Positive for fatigue. GENITOURINARY: No bloody urine. MUSCULOSKELETAL: Positive for ankle swelling. PSYCHIATRIC: Negative for anxiety. PAST MEDICAL AND SURGICAL HISTORY: Coronary artery disease, type 2 diabetes mellitus, hypertension, gallstones, COPD, thrombocytosis, history of CVA, asthma, and hyperlipidemia. History of left ankle ORIF, history of central hernia repair, history of coronary stents times 3, history of left nephrectomy, and history of hysterectomy. ALLERGIES: PENICILLIN. CT of abdomen and pelvis was performed on 11/01/2016, revealed cholelithiasis. Absence of left kidney. Focal soft tissue density in the posterior left lung. Malignancy could not be excluded. The radiologist recommended close CT followup beginning in 3 months or biopsy is indicated. HOME MEDICINES: Valsartan, cetirizine, atorvastatin, atenolol, glipizide, tramadol, naproxen, ropinirole, omeprazole, QVAR, ipratropium, fluconazole, and montelukast as well as albuterol. PHYSICAL EXAMINATION: GENERAL: The patient appears acutely ill. Also appears chronically ill. The entire physical examination was performed in the presence of a female nurse. VITAL SIGNS: Reviewed. EARS: External ears appear normal. EYES: Extraocular movements are intact. NECK: Trachea is midline. CHEST: No intercostal retractions. HISTORY AND PHYSICAL [id number] JIA MENDOZA PULMONARY: Nonlabored. No stridor. ABDOMEN: Right upper quadrant tenderness. EXTREMITIES: No peripheral cyanosis. INTEGUMENT: She has a number of seborrheic keratoses. PSYCHIATRIC: Flat affect. NEUROLOGIC: Answers questions appropriately. BACK: Thoracic kyphosis is present. LYMPHATIC: No lymphangitic streaking of the exposed extremities. IMPRESSION: Symptomatic gallstones versus acute cholecystitis. PLAN: Laparoscopic cholecystectomy, intraoperative cholangiography with liver biopsy, possible open procedure. TRANSINT:[id number] Voice Confirmation ID: [id number] DOCUMENT ID: [id number] CC: DANIEL Augustin MD BREVING, ANNE VERA at 1017 CC: [id number] DICTATION DATE: 12/11/16 1338 PLATE CONDITIONER: 12/11/16 1428 ADM IN [facility] [address] [place] [address]
--- NOTE | 2016-12-15 10:17 | OP ---
PATIENT NAME: JIA MENDOZA MEDICAL RECORD: [id number] :29 LOCATION:D.MS Mistry2229 ADMISSION DATE:12/12/16 SURGEON: ANNE NOLAN MD DATE OF OPERATION: 12/11/2016 PREOPERATIVE DIAGNOSIS: Symptomatic gallstones. POSTOPERATIVE DIAGNOSES: Symptomatic gallstones, hepatomegaly and extensive intraabdominal adhesion. SURGEON: Anne Nolan MD. FURNITURE MECHANIC: None. BLOOD LOSS: Minimal. ANESTHESIA: General. COMPLICATIONS: None. The risks, possible complications and alternatives to procedure were explained to the patient. She elects to proceed. OPERATIVE COURSE: The patient was conveyed to the operating room electively on 12/11/2016. General anesthesia was induced by anesthesia staff. The abdomen was sterilely prepped and draped. A small skin stephania was accomplished in the left upper quadrant. A Veress needle was inserted through the skin stephania into the peritoneal cavity. CO2 insufflation was begun. Once a sufficient pneumoperitoneum had been achieved, a 5-mm trocar was inserted through an incision in the left upper quadrant. Under direct internal vision utilizing a television camera, I was able to visualize numerous intra-abdominal adhesions. Some laparoscopic photographs were obtained. It appeared that the right upper quadrant is void of adhesions, however. Under laparoscopic guidance, I placed a 5-mm trocar in the right upper quadrant. Under direct internal vision utilizing a television camera, two more 5 mm trocars were inserted. One was in the epigastrium. One was far laterally in the right upper quadrant. A 12-mm trocar was placed in the right lower quadrant. During insertion of the Veress needle and all trocars, there appeared to have been no injury to the bowels, any intraperitoneal or retroperitoneal structures. The liver was identified to be enlarged. Therefore, a liver biopsy was indicated. Under laparoscopic guidance, I percutaneously accessed the right upper quadrant utilizing an 18-gauge core needle liver biopsy device. Cores were obtained over the convexity of the liver. The biopsy sites were made hemostatic with electrocautery. I then advanced the cholangiogram trocar. I punctured the fundus of the gallbladder. I aspirated bile. I then injected dye. Under real time fluoroscopy, static fluoroscopic images were obtained. These were cholangiograph images and they were sent to the radiologist for interpretation. I aspirated bile. I removed the cholangiogram trocar. OPERATIVE REPORT [id number] JIA MENDOZA The gallbladder was grasped and retracted cephalad. The infundibulum was grasped and retracted laterally. Blunt dissection was begun on the triangle of Calot. One cystic artery and one cystic duct were identified. These were clipped multiply and divided between clips. The gallbladder was then excised from its bed in the liver. It was placed within an Endobag retrieval device and was withdrawn through the right lower quadrant trocar site. The 12-mm trocar was replaced and the abdomen was reinsufflated. I irrigated and aspirated in the right upper quadrant. There was no bleeding even at low pressure of 8. The 12-mm trocar site was closed with 0 Vicryl sutures utilizing the Papi-Ita suture closure device. All the trocars were removed and the abdomen desufflated. All skin incisions were closed with interrupted intracuticular 3-0 and 4-0 Vicryls. Benzoin and Steri-Strips were applied. The patient was then extubated and conveyed to post-anesthesia care unit where she was in stable condition. My plan for her is to be dismissed home tomorrow. TRANSINT:[id number] Voice Confirmation ID: [id number] DOCUMENT ID: [id number] CC: DANIEL Augustin MD BREVING, ROBERT MD at 1017 CC: WILLIAM GARICA MD [id number] DICTATION DATE: 12/11/16 1614 GENERAL FARM HAND: 12/11/16 1639 ADM IN [facility] [address] [place] [address]
--- NOTE | 2016-12-15 10:28 | NUR ---
Patient Name: JIA MENDOZA Admission Status: Elective Accout number: [id number] Admission Date: 12-12-2016 : 1930 Admission Diagnosis:CALCULUS OF GALLBLADDER W/O CHOLECYSTITIS W/O OBSTRUCTI Attending: ANNE NOLAN Current LOS: 3 Anticipated DC Date: 12-17-2016 Planned Disposition: Home with Home Health Primary Insurance: MEDICARE A & B Discharge Planning Comments: CM MET WITH PATIENT AND DAUGHTER (АННА) REGARDING D/C NEEDS AND PLANS. PATIENT STATED HER DAUGHTER IS HER CAREGIVER AND WILL DRIVE HER HOME AT DISCHARGE. PATIENT STATED THERE IS A RAMP TO ENTER HOME AND NO STAIRS INSIDE. PATIENTS DAUGHTER STATED SHE HELPS HER WITH EVERYTHING EXCEPT FEEDING HER. PATIENT HAS A WALKER, WHEELCHAIR, SHOWER CHAIR, BS COMMODE, AND GLUCOMETER AT HOME. PATIENTS PCP IS DR. BELTRE IN [place] AND USES [facility] IN [place]. PATIENT IS CURRENTLY WITH VISITING NURSES. CM WILL CONTINUE TO FOLLOW PATIENT WITH D/C NEEDS AND PLANS. PCP DR. BELTRE [facility]- [phone] АННА (DAUGHTER) [phone] Jumbo Operator: Jo Guerra Is the patient Alert and Oriented? Yes 0 * How many steps to enter\exit or inside your home? RAMP 0 * PCP DR. BELTRE ([place]) 0 * Pharmacy [facility] 0 * Preadmission Environment Home with Family 0 * ADLs Partial Dependent 0 * Partial ADLs (Assistance needed) Ambulation Bathing Dressing Medication Management Toileting Transfers 0 * Equipment Bedside Commode Glucometer Shower Chair Walker Wheelchair 0 * List name and contact numbers for known caregivers / representatives who currently or will assist patient after discharge: АННА (DAUGHTER) [phone] 0 * Community resources currently utilized Home Health 0 * Please name any agencies selected above. VISITING NURSES 0 * Additional services required to return to the preadmission environment? Yes 0 * Can the patient safely return to the preadmission environment? Yes 0 * Has this patient been hospitalized within the prior 30 days at any hospital? No 0 Grand Total: 0
[2016-12-15 12:59] VITALS: BP 124/79
--- NOTE | 2016-12-15 14:26 | NUR ---
Rehab Prescreening Consult recieved, the patient was visited and her chart was reviewed. She is S/P Kristian Abdi. She has a history of atrial fib and has been off of her medication. Post op she had an episode of UCAF, cardiology was consulted and she was started on Sotolol 120mg po BID. She converted to a NSR and remains in NSR on the CM. She does not have a qualifying diagnosis for IRF at this time. Discussed with the CM Jo Stewart RN. Jessica Cabezas RN Clinical Liaison, Rehab
[2016-12-15 17:46] VITALS: BP 135/60
--- NOTE | 2016-12-15 19:25 | NUR ---
RECIEVED SHIFT REPORT. PT IS LYING IN BED. ALERT AND ORIENTED AND ABLE TO VERBALIZE NEEDS. IV IS PATENT AND FLUIDS ARE RUNNING PER ORDER. STUART IS DRAINING URINE BY GRAVITY. SCD'S ON. PT REQUIRES ASSISTANCE TURNING IN BED FOR COMFORT AND SKIN CARE. PT DENIES ANY PAIN AT THIS TIME. LAP SITES TO ABDOMEN C/D/I. NO NEEDS ARE VERBALIZED AT THIS TIME. WILL CONTINUE TO MONITOR. DAUGHTER IS AT THE BEDSIDE. SIDE RAILS ARE UP X 2. BED IS IN LOWEST POSITION. BED ALARM IS ON FOR SAFETY. CALL LIGHT IS WITHIN REACH.
[2016-12-15 20:00] VITALS: BP 140/66
--- NOTE | 2016-12-15 21:17 | NUR ---
SHIFT ASSESSMENT COMPLETED. NIGHT MEDS GIVEN WITH NO PROBLEMS. PT RECIEVED NO INSULIN PER SLIDING SCALE FOR MACI=088. NO NEEDS ARE VOICED. WILL MONITOR. DAUGHTER AT BEDSIDE. SIDE RAILS X 2. BED LOW. BED ALARM ON. CALL LIGHT IN REACH.
[2016-12-16 04:00] VITALS: BP 133/72
[2016-12-16 06:31] LABS: BASOPHILS 0.1 % (0-2); EOSINOPHILS 1.1 % (0-7); HEMATOCRIT 27.1 % (36.0-48.0); HEMOGLOBIN 9.2 g/dL (12-16); IMMATURE GRANULOCYTES 1.2 % (0-5); LYMPHOCYTES 11.4 % (15-50); MCH 35.7 pg (26.0-34.0); MCHC 33.9 g/dL (31.0-37.0); MEAN PLATELET VOLUME 8.7 fL (7.4-10.4); NEUTROPHILS 75.2 % (40-80); PLATELET COUNT 330 10x3/uL (130-400); RBC 2.58 10x6/uL (4.00-5.40); RDW 16.2 % (11.5-14.5); WBC 13.1 10x3/uL (4.8-10.8)
[2016-12-16 07:09] LABS: ALBUMIN 2.1 g/dL (3.4-5.0); ANION GAP 11.1 mmol/L (8-16); BILIRUBIN - TOTAL 0.4 mg/dL (0.2-1.3); CALCIUM 8.3 mg/dL (8.5-10.1); CARBON DIOXIDE 24.7 mmol/L (21.0-32.0); POTASSIUM - SERUM 3.8 mmol/L (3.5-5.1); PROTEIN - SERUM 5.5 g/dL (6.4-8.2)
[2016-12-16 07:14] LABS: CREATININE - SERUM 0.8 mg/dL (0.6-1.3)
--- NOTE | 2016-12-16 08:00 | NUR ---
REPORT RECIEVED ASSUMED CARE. PATIENT IN BED WITH IV INTACT. NO COMPLAINTS AT THIS TIME. CALL LIGHT WITHIN REACH.
[2016-12-16 08:03] VITALS: BP 164/64
--- NOTE | 2016-12-16 08:45 | NUR ---
PATIENT SITTING UP IN CHAIR AT THIS TIME. NO COMPLAINTS. EATING BREAKFAST. FAMILY AT BEDSIDE. CALL LIGHT WITHIN REACH.
--- NOTE | 2016-12-16 12:45 | NUR ---
PATIENT IN BED WITH IV INTACT. NO COMPLAINTS AT THIS TIME. CALL LIGHT WITHIN REACH. FAMILY AT BEDSIDE.
--- NOTE | 2016-12-16 12:53 | NUR ---
CM REASSESSMENT NOTE: PATIENT WAS NOT ACCEPTED TO IP REHAB. DAUGHTER REFUSED A SNF AND SO DID PATIENT. DAUGHTER STATED SHE WOULD TAKE PATIENT HOME AND SHE IS CURRENT WITH VISITING NURSE [facility] IN [place]. CM EXPLAINED SNF WOULD BE GOOD FOR PATIENT BUT DAUGHTER AND PATIENT STATED NO. CM TOLD DAUGHTER THAT HOME HEALTH COULD HELP THEM GET TO A SNF IF NEEDED LATER. DAUGHTER STATED SHE KNEW THAT. VISITING NURSE [facility]- [phone]
--- NOTE | 2016-12-16 13:57 | CN ---
PATIENT NAME:JIA MENDOZA MEDICAL RECORD: [id number] : 28 LOCATION:[id number] ADMIT DATE: 12/12/16 ACCOUNT: [id number] CONSULTING PHYSICIAN: EL AYALA MD REFERRING PHYSICIAN: ANNE NOLAN MD DATE OF CONSULTATION: 12/15/2016 HISTORY OF PRESENT ILLNESS: An 86-year-old lady with a history of atrial fibrillation, admitted and underwent cholecystectomy, had postop atrial fibrillation. She has intermittent atrial fibrillation, previously was on Cordarone. However, has had no flares previously and this agent was stopped in the past. She has a history of hypertension, diabetes mellitus. Currently, in sinus. We are asked to see her concerning her cardiovascular status. PAST MEDICAL HISTORY: 1. History of diabetes mellitus. 2. Hypertension. 3. Hyperlipidemia. 4. Coronary artery disease, status post intervention. ALLERGIES: PENICILLIN, MORPHINE, AND CODEINE. SOCIAL HISTORY: Lives in [place]. Nonsmoker, nondrinker. Typically takes care of all of his ADLs. Good social support system. REVIEW OF SYSTEMS: The patient reports easy bruising but reports no swollen glands. The patient reports no fever, no night sweats, no significant weight gain, no significant weight loss. No significant exercise tolerance. The patient reports no dry eyes, no irritation, no vision change. Patient reports no difficulty hearing and no ear pain. Patient reports no frequent nose bleeds or nose and sinus problems. Patient reports on arm pain on exertion. No shortness of breath while lying down. No history of heart murmur. Patient reports no cough, no wheezing or coughing up blood. Patient reports no abdominal pain, no vomiting. Normal appetite. No diarrhea and not vomiting blood. No nausea and no constipation. Patient reports no incontinence. No difficulty urinating. No hematuria. No increased frequency. Patient reports no muscle aches. No weakness, no arthralgias, no back pain. No swelling of the extremities. Patient reports no abnormal mole, no jaundice, no rashes. Reports no loss of consciousness. No weakness and no numbness. No seizures, dizziness, or headaches. The patient reports no depression, no sleep disturbance, feeling safe in a relationship and no alcohol abuse. Patient reports on fatigue. Reports no runny nose or sinus pressure. No itching, no hives, and no frequent sneezing. HOME MEDICATIONS: 1. Typically include metformin 1 gram b.i.d. 2. Glipizide 5 b.i.d. 3. Prilosec 20 day. 4. Tramadol 50 mg q.6 hours p.r.n. 5. Naprosyn 500 b.i.d. 6. Aspirin 81 every day. 7. Diovan/HCT 160/12.5. 8. Lipitor 10 every day. PHYSICAL EXAMINATION: CONSULT REPORT [id number] JIA MENDOZA GENERAL: This is a pleasant female in no acute distress. VITAL SIGNS: 106/55, pulse 76 and regular. HEENT: Normocephalic, atraumatic. NECK: No JVD or bruit. HEART: Regular. LUNGS: Fairly good excursion. ABDOMEN: Soft, nontender, mildly hypoactive bowel sounds. EXTREMITIES: Pulses are 2+. There is no edema. NEUROLOGIC: Grossly intact. DIAGNOSTIC DATA: ECG shows normal sinus rhythm. IMPRESSION: Intermittent atrial fibrillation, currently back on sotalol. This may happen intermittently, although I suspect this will be easier to control the farther out we get from surgery. Thank you for the consultation. TRANSINT:[id number] Voice Confirmation ID: [id number] DOCUMENT ID: [id number] EL AYALA MD at 1357 CC: [id number] DICTATION DATE: 12/15/16816 SR VICE PRESIDENT: 12/15/16 1106 ADM IN [place] [id number] [place] [address]
--- NOTE | 2016-12-16 14:28 | NUR ---
PATIENT IN BED WITH EYES CLOSED RESTING QUIETLY. IV INTACT. BSCDS ON. FAMILY AT BEDSIDE. CALL LIGHT WITHIN REACH.
--- NOTE | 2016-12-16 15:24 | NUR ---
PATIENT AND FAMILY RECIEVED DC INSTRUCTIONS. VERBALIZED UNDERSTANDING. NO QUESTIONS AT THIS TIME. PATIENT OFF OF BEDPAN. BOUDREUXS PLACED TO BUTTOCKS AT THIS TIME. EXPLAINED TO PATIENT FAMILY THAT WOULD BE ABLE TO PLACE A MEPILEX OVER THE PRESSURE ULCER. REFUSED AT THIS TIME. STATED SHE WOULD BE AFRAID THAT IT WOULD STAY CRINKLED UP ON BUTTOCKS. ENCOURAGED DAUGHTER THAT IF SHE DIDNT WANT TO PLACE DRESSING OK JUST TO CONTINUE TO PUT BOUDREUXS ON SORE AND KEEP PATIENT TURNED AND OFF OF BUTTOCKS AMAP.
--- NOTE | 2017-01-11 09:40 | DS ---
PATIENT:JIA MENDOZA :28 MEDICAL RECORD: [id number] DISCHARGE SUMMARY ADMISSION DATE: 12/12/16 DISCHARGE DATE: 12/16/16 PRINCIPAL DIAGNOSES: 1. Symptomatic gallstones. 2. Hepatomegaly. 3. Extensive intraabdominal adhesions. PRINCIPAL PROCEDURE: 1. Laparoscopic cholecystectomy, intraoperative cholangiography without immediate surgeon interpretation. 2. An 18-gauge core needle liver biopsy. SECONDARY DIAGNOSES: Coronary artery disease, hypertension, CVA, noninsulin-dependent diabetes mellitus, gastroesophageal reflux, coronary stents, COPD. The patient is also blind. OTHER DIAGNOSIS: Should include anemia, not due to blood loss. HOSPITAL COURSE: The patient was admitted. She underwent the above operative procedure. Postoperatively, her pain was controlled. Her diet was advanced. She was dismissed home. TRANSINT:[id number] Voice Confirmation ID: [id number] DOCUMENT ID: [id number] CC: DANIEL Augustin ROBERT MD at 0940 CC: WILLIAM GARCIA MD and BRANDYN GODOY MD [id number] DICTATION DATE: 01/03/17 165 SHANK SCOURER: 01/03/177 DIS IN 12/16/16 [facility] [address] [place] [address]
== END 2016-12-16 16:43 | disposition home health service (06) | DRG 418 ==
LOC: OBSVTIME → D.OPS 03:25 → D.MS 15:10 → EDSTATUS 12-20 14:52
PROVIDERS: Family Medicine; ADMIT Surgery
PROC: BF121ZZ Fluoroscopy of Gallbladder using Low Osmolar Contrast (ICD-10-PCS; 2016-12-11)
PROC: 0FB03ZX Excision of Liver, Percutaneous Approach, Diagnostic (ICD-10-PCS; 2016-12-11)
PROC: 0FT44ZZ Resection of Gallbladder, Percutaneous Endoscopic Approach (ICD-10-PCS; principal; 2016-12-11 11:00)
PROC: 0DNW4ZZ Release Peritoneum, Percutaneous Endoscopic Approach (ICD-10-PCS; 2016-12-11 11:00)
PROC: 0T9B70Z Drainage of Bladder with Drainage Device, Via Natural or Artificial Opening (ICD-10-PCS; 2016-12-14)
DX: K80.20 Calculus of gallbladder without cholecystitis without obstruction (principal); I69.354 Hemiplegia and hemiparesis following cerebral infarction affecting left non-dominant side; E87.1 Hypo-osmolality and hyponatremia; N39.0 Urinary tract infection, site not specified; R16.0 Hepatomegaly, not elsewhere classified; K66.0 Peritoneal adhesions (postprocedural) (postinfection); G25.81 Restless legs syndrome; H54.8 Legal blindness, as defined in USA; K21.9 Gastro-esophageal reflux disease without esophagitis; E83.42 Hypomagnesemia; I48.91 Unspecified atrial fibrillation; E11.65 Type 2 diabetes mellitus with hyperglycemia; I10 Essential (primary) hypertension; D64.9 Anemia, unspecified